=== PATIENT | female | born 1950 | race Hispanic/Latino ===

== ENCOUNTER 2017-12-07 18:10 | Emergency (ER) | payer OTHER ==
[2017-12-07] MEDS ORDERED: NA CHLORIDE 0.9% 1,000 ML ONE (19:41)
[2017-12-07 19:43] LABS: Absolute Lymphocytes (CBC) 1.6 K/uL (0.7-4.9); Absolute Monocytes 0.7 K/uL (0.1-1.3); Absolute Neutrophil 5.9 K/uL (1.8-8.0); Basophils % 0.6 % (0-1.3); Eosinophils % 2.3 % (0-4.4); Hematocrit 41.4 % (36.0-45.0); Lymphocytes % 19.4 % (15.3-44.8); MCH 28.9 pg (27.0-35.0); MCV 86.3 fL (80-100); MPV 7.6 fL (7.6-11.3); Monocytes % 7.9 % (3.3-12.3)
--- NOTE | 2017-12-07 19:49 | RAD REPORT ---
EXAM DESCRIPTION: VERONICAExtreelver Venous Uni Ltd12/07/2017 7:29 pm CLINICAL HISTORY: left leg pain and swelling. COMPARISON: None. FINDINGS: Left common femoral, superficial femoral, popliteal and posterior tibial veins are compre ssible and demonstrate augmentation. Doppler demonstrates good flow. A 4 x 1 x 2 centimeter Dyer's cyst is present IMPRESSION: No evidence of deep venous thrombosis involving the left lower extremity. 4 centimeter Dyer's cyst
--- NOTE | 2017-12-07 19:57 | RAD REPORT ---
EXAM DESCRIPTION: Luz Swanson (2 Views)12/07/2017 7:46 pm CLINICAL HISTORY: fever COMPARISON: May 2017 FINDINGS: The lungs appear clear of acute infiltrate. The heart is normal size IMPRESSION: No acute abnormalities displayed
[2017-12-07 20:12] LABS: Potassium 3.7 mmol/L (3.5-5.1)
[2017-12-07 20:29] LABS: Urine Blood 1+ (NEG); Urine Glucose NEGATIVE (NEG); Urine Protein NEGATIVE (NEG); Urine Specific Gravity 1.025 (1.005-1.030); Urine pH 6.5 (5.0-7.0)
--- NOTE | 2017-12-07 20:38 | ER ---
Nurse's Notes [facility] Name: uLz Maria Hgiuera Age: 66 yrs Sex: Female : 1950 Arrival Date: 12/07/2017 Time: 18:13 Bed 5 Private MD: Bismark Mo V Diagnosis: Synovial cyst of popliteal space [Dyer], left knee;Malaise and fatigue Presentation: 12/07 18:25 Presenting complaint: Child states: she feel like dizzy and shaky and could hardly hj stand up 2-3 days ago, went to PCP, gave her a pill on an upset stomach and stress; she still feel the same today, S/P L knee surgery a month ago; reports fever and chills; reports nausea and vomiting; reports abd pain;. Transition of care: patient was not received from another setting of care. 18:25 Method Of Arrival: Ambulatory 18:27 Onset of symptoms was December 04, 2017. Risk Assessment: Do you want to hurt yourself or hj someone else? Patient reports no desire to harm self or others. Initial Sepsis Screen: Does the patient meet any 2 criteria? No. Patient's initial sepsis screen is negative. Does the patient have a suspected source of infection? No. Patient's initial sepsis screen is negative. Care prior to arrival: None. 18:27 Acuity: TOYIN 3 hj Triage Assessment: 18:29 General: Appears in no apparent distress. uncomfortable, Behavior is calm, cooperative, hj appropriate for age. Pain: Complains of pain in abdomen. Historical: - Allergies: 18:29 No Known Drug Allergies; hj - Home Meds: 18:29 sumatriptan [Active]; omeprazole 40 mg Oral cpDR 1 cap once daily [Active]; duloxetine hj 30 mg oral cpDR 1 cap once daily [Active]; tramadol 50 mg Oral tab 1 tab every 6 hours [Active]; - PMHx: 18:29 Hypertension; hj - PSHx: 18:29 Knee surgery; hj - Immunization history:: Adult Immunizations up to date. - Social history:: Smoking status: Patient/guardian denies using tobacco, Patient/guardian denies using alcohol. - Ebola Screening: : Patient negative for fever greater than or equal to 101.5 degrees Fahrenheit, and additional compatible Ebola Virus Disease symptoms Patient denies exposure to infectious person Patient denies travel to an Ebola-affected area in the 21 days before illness onset. Screenin:30 Abuse screen: Denies threats or abuse. Denies injuries from another. Nutritional hj screening: No deficits noted. Tuberculosis screening: No symptoms or risk factors identified. Fall Risk None identified. Assessment: 18:45 General: Appears uncomfortable, Behavior is calm, cooperative, Reports chills for >3 aa5 days. Pain: Complains of pain in right pentecostal Pain does not radiate. Pain currently is 2 out of 10 on a pain scale. Quality of pain is described as aching, Pain began 1 week ago Is continuous. Neuro: Level of Consciousness is awake, alert, obeys commands, Oriented to person, place, time, situation, Personnel Manager are weak bilaterally Moves all extremities. Speech is normal, Facial symmetry appears normal, Pupils are PERRLA, Reports dizziness on and off x 1 week . Cardiovascular: Denies chest pain, shortness of breath, Heart tones S1 S2 present Edema is absent. Rhythm is regular. Respiratory: Airway is patent Respiratory effort is even, unlabored, Respiratory pattern is regular, symmetrical, Breath sounds are clear bilaterally. GI: Abdomen is round non-distended, Bowel sounds present X 4 quads. Abd is soft and non tender X 4 quads. Reports nausea, Patient currently denies abdominal pain, diarrhea, vomiting. : No signs and/or symptoms were reported regarding the genitourinary system. EENT: No signs and/or symptoms were reported regarding the EENT system. Derm: Skin is pink, warm \T\ dry. Musculoskeletal: Range of motion: intact in all extremities. 19:13 General: Appears in no apparent distress. comfortable, Behavior is calm, cooperative, ao Reports chills for >3 days. Pain: Complains of pain in abdomen Pain does not radiate. Pain currently is 3 out of 10 on a pain scale. Quality of pain is described as aching, Pain began Is. Neuro: Level of Consciousness is awake, alert, obeys commands, Oriented to person, place, time, situation, Personnel Manager are weak bilaterally Moves all extremities. Speech is normal, Facial symmetry appears normal, Pupils are PERRLA, Reports dizziness, since a week weakness. Cardiovascular: Denies chest pain, shortness of breath, Heart tones S1 S2 present Edema is absent. Respiratory: Airway is patent Respiratory effort is even, unlabored, Respiratory pattern is regular, symmetrical, Breath sounds are clear. GI: Abdomen is round non-distended, Bowel sounds present X 4 quads. Abd is soft and non tender X 4 quads. Reports nausea, Patient currently denies abdominal pain, diarrhea. : No signs and/or symptoms were reported regarding the genitourinary system. EENT: No signs and/or symptoms were reported regarding the EENT system. Derm: Skin is pink, warm \T\ dry. Musculoskeletal: Range of motion: intact in all extremities. 20:19 Reassessment: Patient appears in no apparent distress at this time. Patient and/or ao family updated on plan of care and expected duration. Pain level reassessed. Patient is alert, oriented x 3, equal unlabored respirations, skin warm/dry/pink. Labs reports. Vital Signs: 18:30 BP 154 / 98; Pulse 66; Resp 18; Temp 97.4(O); Pulse Ox 97% on R/A; Weight 81.65 kg; hj Height 5 ft. 0 in. (152.40 cm); Pain 2/10; 19:13 BP 159 / 61; Pulse 65; Resp 16; Pulse Ox 97% on R/A; Pain 3/10; ao 20:19 BP 168 / 82; Pulse 59; Resp 16; Pulse Ox 98% on R/A; Pain 0/10; ao 18:30 Body Mass Index 35.15 (81.65 kg, 152.40 cm) ED Course: 18:13 Patient arrived in ED. mr 18:14 Bismark Mo MD is Private Physician. mr 18:28 Triage completed. hj 18:30 Arm band placed on left wrist. hj 18:30 Patient has correct armband on for positive identification. Placed in gown. Bed in low hj position. Call light in reach. Side rails up X 1. 18:37 [facility] snw 18:37 Rios Kimball MD is Attending Physician. snw 18:58 Beti Carmona, MALVIN is Primary Nurse. aa5 19:03 Report given to Olvin Zayas RN. aa5 19:03 No provider procedures requiring assistance completed. aa5 19:18 Primary Nurse role handed off by Beti Carmona RN ao 19:18 Olvin Zayas, RN is Primary Nurse. ao 19:29 US Extremity Venous Unilateral Ltd In Process Unspecified. EDMS 19:42 Patient moved to radiology via wheelchair. kw 19:42 X-ray completed. Patient tolerated procedure well. kw 19:42 Patient moved back from radiology. kw 19:42 Inserted saline lock: 20 gauge in right antecubital area, using aseptic technique. tl2 Blood collected. 19:43 Chest Pa And Lat (2 Views) XRAY In Process Unspecified. EDMS 20:37 Bismark Mo MD is Referral Physician. snw 20:51 IV discontinued, intact, bleeding controlled, No redness/swelling at site. Pressure ao dressing applied. Administered Medications: 19:58 Drug: NS 0.9% 1000 ml Route: IV; Rate: 125 ml/hr; Site: left antecubital; ao Outcome: 20:38 Discharge ordered by MD. snw 20:50 Discharged to home via wheelchair. ao 20:50 Condition: stable 20:50 Discharge instructions given to patient, Instructed on discharge instructions, follow up and referral plans. Demonstrated understanding of instructions, follow-up care, medications. 20:54 Patient left the ED. ao Signatures: Dispatcher [employer] EDIL Bri Mann, NIRALIC BARREL RIB MATTING MACHINE OPERATOR-Marisela Navarrete Audri, MALVIN RN [id number] Deann Villanueva Henry, RN RN hj Ortiz, Alex, RN RN ao Knox, Taylor, RN RN tl2 Corrections: (The following items were deleted from the chart) 18:33 18:30 Pulse 66bpm; Resp 68bpm; Pulse Ox 97% RA; Temp 97.4F Oral; 81.65 kg; Height 5 ft. hj 0 in.; BMI: 35.1; Pain 2/10; hj 18:39 18:30 BP 154 / 98; Pulse 66bpm; Resp 68bpm; Pulse Ox 97% RA; Temp 97.4F Oral; 81.65 kg; hj Height 5 ft. 0 in.; BMI: 35.1; Pain 2/10; hj
--- NOTE | 2017-12-07 20:38 | EDPHYS ---
Physician Documentation [facility] Name: Luz Maria Higuera Age: 66 yrs Sex: Female : 1950 Arrival Date: 12/07/2017 Time: 18:13 Bed 5 Private MD: Bismark Mo V ED Physician Rios Kimball HPI: 12/07 21:47 This 66 yrs old Female presents to ER via Ambulatory with complaints of snw Weakness. 21:47 The patient presents to the emergency department with weakness of the entire body, snw generalized weakness, that is moderate. Onset: The symptoms/episode began/occurred gradually, 2 week(s) ago, and became persistent. Context: occurred at home. Associated signs and symptoms: The patient has no apparent associated signs or symptoms. Patient's baseline: Neuro: alert and fully oriented, Motor: no deficits, Ambulation: walks without assistance, pt with recent (1 mo ago) hx of left knee surgery. It is unknown whether or not the patient has had similar symptoms in the past. The patient has been recently seen by a physician: the patient's primary care provider, Dr. Mo with similar presenting complaints, given nexium. Historical: - Allergies: 18:29 No Known Drug Allergies; hj - Home Meds: 18:29 sumatriptan [Active]; omeprazole 40 mg Oral cpDR 1 cap once daily [Active]; duloxetine hj 30 mg oral cpDR 1 cap once daily [Active]; tramadol 50 mg Oral tab 1 tab every 6 hours [Active]; - PMHx: 18:29 Hypertension; hj - PSHx: 18:29 Knee surgery; hj - Immunization history:: Adult Immunizations up to date. - Social history:: Smoking status: Patient/guardian denies using tobacco, Patient/guardian denies using alcohol. - Ebola Screening: : Patient negative for fever greater than or equal to 101.5 degrees Fahrenheit, and additional compatible Ebola Virus Disease symptoms Patient denies exposure to infectious person Patient denies travel to an Ebola-affected area in the 21 days before illness onset. ROS: 21:45 Eyes: Negative for injury, pain, redness, and discharge, ENT: Negative for injury, snw pain, and discharge, Neck: Negative for injury, pain, and swelling, Cardiovascular: Negative for chest pain, palpitations, and edema, Respiratory: Negative for shortness of breath, cough, wheezing, and pleuritic chest pain, Abdomen/GI: Negative for abdominal pain, nausea, vomiting, diarrhea, and constipation, Back: Negative for injury and pain, : Negative for injury, bleeding, discharge, and swelling, MS/Extremity: Negative for injury and deformity, Skin: Negative for injury, rash, and discoloration. 21:45 Abdomen/GI: Negative for abdominal pain except some burning to epigastric area, no nausea, vomiting, diarrhea, or constipation. 21:45 Constitutional: Positive for malaise, weakness. 21:45 Neuro: Positive for weakness. Exam: 21:44 Constitutional: This is a well developed, well nourished patient who is awake, alert, snw and in no acute distress. Head/Face: Normocephalic, atraumatic. Eyes: Pupils equal round and reactive to light, extra-ocular motions intact. Lids and lashes normal. Conjunctiva and sclera are non-icteric and not injected. Cornea within normal limits. Periorbital areas with no swelling, redness, or edema. ENT: Nares patent. No nasal discharge, no septal abnormalities noted. Tympanic membranes are normal and external auditory canals are clear. Oropharynx with no redness, swelling, or masses, exudates, or evidence of obstruction, uvula midline. Mucous membranes moist. Neck: Trachea midline, no thyromegaly or masses palpated, and no cervical lymphadenopathy. Supple, full range of motion without nuchal rigidity, or vertebral point tenderness. No Meningismus. Chest/axilla: Normal chest wall appearance and motion. Nontender with no deformity. No lesions are appreciated. Cardiovascular: Regular rate and rhythm with a normal S1 and S2. No gallops, murmurs, or rubs. Normal PMI, no JVD. No pulse deficits. Respiratory: Lungs have equal breath sounds bilaterally, clear to auscultation and percussion. No rales, rhonchi or wheezes noted. No increased work of breathing, no retractions or nasal flaring. Back: No spinal tenderness. No costovertebral tenderness. Full range of motion. Skin: Warm, dry with normal turgor. Normal color with no rashes, no lesions, and no evidence of cellulitis. MS/ Extremity: Pulses equal, no cyanosis. Neurovascular intact. Full, normal range of motion. 21:44 Abdomen/GI: Inspection: abdomen appears normal, Bowel sounds: normal, Palpation: abdomen is soft and non-tender, in all quadrants. 21:44 Neuro: Orientation: is normal, Mentation: is normal, Memory: is normal, Motor: is normal, c/o generalized weakness/fatigue. Vital Signs: 18:30 BP 154 / 98; Pulse 66; Resp 18; Temp 97.4(O); Pulse Ox 97% on R/A; Weight 81.65 kg; hj Height 5 ft. 0 in. (152.40 cm); Pain 2/10; 19:13 BP 159 / 61; Pulse 65; Resp 16; Pulse Ox 97% on R/A; Pain 3/10; ao 20:19 BP 168 / 82; Pulse 59; Resp 16; Pulse Ox 98% on R/A; Pain 0/10; ao 18:30 Body Mass Index 35.15 (81.65 kg, 152.40 cm) hj MDM: 18:53 Patient medically screened. snw 21:46 Data reviewed: vital signs, nurses notes. Data interpreted: Pulse oximetry: on room air snw is 98 %. Interpretation: normal. Counseling: I had a detailed discussion with the patient and/or guardian regarding: the historical points, exam findings, and any diagnostic results supporting the discharge/admit diagnosis, the presence of at least one elevated blood pressure reading (>120/80) during this emergency department visit. Admission orders: after a detailed discussion of the patient's condition and case, the admit orders are written by me. Special discussion: I have referred the patient to see his PCP for further evaluation of high blood pressure. Based on the history and exam findings, there is no indication for further emergent testing or inpatient evaluation. I discussed with the patient/guardian the need to see the primary care provider for further evaluation of the symptoms. 12/07 18:58 Order name: Blood Culture Adult (2) [facility] 12/07 18:58 Order name: CBC with Diff; Complete Time: 19:45 snw 12/07 18:58 Order name: Chem 7; Complete Time: 20:14 snw 12/07 18:58 Order name: Lipase; Complete Time: 20:14 snw 12/07 19:53 Order name: Urine Culture [facility] 12/07 19:53 Order name: Urine Microscopic Only; Complete Time: 21:44 [facility] 12/07 18:58 Order name: Chest Pa And Lat (2 Views) XRAY; Complete Time: 20:09 [facility] 12/07 19:15 Order name: US Extremity Venous Unilateral Ltd; Complete Time: 19:53 w 12/07 19:53 Order name: Urine Dipstick-Ancillary (obtain specimen); Complete Time: 19:54 [facility] 12/07 20:14 Order name: Urine Dipstick--Ancillary (enter results); Complete Time: 20:32 ms Administered Medications: 19:58 Drug: NS 0.9% 1000 ml Route: IV; Rate: 125 ml/hr; Site: left antecubital; ao Disposition: 12/07/17 20:38 Discharged to Home. Impression: Synovial cyst of popliteal space [Dyer], left knee, Malaise and fatigue. - Condition is Stable. - Discharge Instructions: Dyer Cyst, Weakness, Fatigue. - Medication Reconciliation Form, Thank You Letter, Antibiotic Education, Prescription Opioid Use form. - Follow up: Bismark Mo MD; When: 2 - 3 days; Reason: Recheck today's complaints, Continuance of care, Re-evaluation by your physician. Follow up: Emergency Department; When: As needed; Reason: Worsening of condition. Addendum: 12/09/2017 20:52 Co-signature as Attending Physician, Rios Kimball MD. r n Signatures: Dispatcher [employer] EDMI Bri Mann, STUDY ABROAD COORDINATOR-C STUDY ABROAD COORDINATOR-Csnw Rios Kimball MD MD rn Joaquin, Henry, RN RN hj Ortiz, Alex, RN RN ao Corrections: (The following items were deleted from the chart) 12/07 19:30 18:59 Extremity Venous Uni Ltd+US.RAD.BRZ ordered. EDMI EDMI 20:54 20:38 12/07/2017 20:38 Discharged to Home. Impression: Synovial cyst of popliteal space ao [Dyer], left knee; Malaise and fatigue. Condition is Stable. Forms are Medication Reconciliation Form, Thank You Letter, Antibiotic Education, Prescription Opioid Use. Follow up: Bismark Mo; When: 2 - 3 days; Reason: Recheck today's complaints, Continuance of care, Re-evaluation by your physician. Follow up: Emergency Department; When: As needed; Reason: Worsening of condition. snw
[2017-12-07 20:58] VITALS: TEMP 97.4
[2017-12-07 21:00] VITALS: BP 168/82; O2SAT 98
[2017-12-07 21:37] LABS: Urine Bacteria <20 /HPF (<20); Urine Culture Reflex Order NOT NEEDED; Urine RBC <5 /HPF (NONE SEEN)
== END 2017-12-07 20:54 | disposition home or self-care (01) ==
LOC: ER 18:10
DX: M71.22 Synovial cyst of popliteal space [Baker], left knee (principal); R53.83 Other fatigue; I10 Essential (primary) hypertension
CPT/HCPCS: 36415; 71046; 80048; 83690; 85025; 87040 ×2; 87086; 87088; 93971; 99284; J7030; 81003; 81015

== ENCOUNTER 2017-12-10 04:34 | Emergency (ER) | payer OTHER ==
[2017-12-10] MEDS ORDERED: DEXAMETHASONE 10 MG/ML VIAL ONE (05:05)
[2017-12-10] MEDS ORDERED: METOCLOPRAMIDE 10 MG/2mL INJ ONE (05:05)
[2017-12-10] MEDS ORDERED: DIAZEPAM 2 MG TABLET ONE (05:06)
[2017-12-10] MEDS ORDERED: NA CHLORIDE 0.9% 500 ML ONE (05:06)
--- NOTE | 2017-12-10 06:16 | EDPHYS ---
Physician Documentation [facility] Name: Luz Maria Higuera Age: 66 yrs Sex: Female : 1950 Arrival Date: 12/10/2017 Time: 04:39 Bed 20 Private MD: ED Physician Rios Kimball HPI: 12/10 04:49 This 66 yrs old Female presents to ER via Unassigned with complaints of Back rn Pain. 04:49 This 66 yrs old Female presents to ER via Unassigned with complaints of rn headache. 04:49 The patient complains of pain to the back/base of head. The patient describes the rn headache as throbbing. Onset: The symptoms/episode began/occurred this morning. Associated signs and symptoms: Pertinent negatives: altered mental status, fever, neck stiffness, rash, vision loss, vomiting, weakness, vertigo. Severity of symptoms: At its worst the pain was moderate, in the emergency department the pain is unchanged. The patient has not experienced similar symptoms in the past. Reports pain to base of head, throbbing, began acutely while sleeping, worse when moves head, no fever/trauma/vomiting/chest pain/abd pain. . Historical: - Allergies: 04:56 No Known Allergies; jd3 - Home Meds: 04:56 omeprazole 40 mg Oral cpDR 1 cap once daily [Active]; SUMATRIPTAN [Active]; tramadol 50 jd3 mg Oral tab 1 tab every 6 hours [Active]; duloxetine 30 mg Oral cpDR 1 cap once daily [Active]; - PMHx: 04:56 Hypertension; jd3 - PSHx: 04:56 Knee surgery; jd3 - Immunization history:: Adult Immunizations up to date. - Family history:: not pertinent. - Social history:: Smoking status: Patient/guardian denies using tobacco. - Ebola Screening: : Patient negative for fever greater than or equal to 101.5 degrees Fahrenheit, and additional compatible Ebola Virus Disease symptoms. - Hospitalizations: : No recent hospitalization is reported. ROS: 04:49 Constitutional: Negative for fever, chills, and weight loss, Eyes: Negative for injury, rn pain, redness, and discharge, Neck: Negative for injury, and swelling, Cardiovascular: Negative for chest pain, palpitations, and edema, Respiratory: Negative for shortness of breath, cough, wheezing, and pleuritic chest pain, Abdomen/GI: Negative for abdominal pain, nausea, vomiting, diarrhea, and constipation, MS/Extremity: Negative for injury and deformity, Skin: Negative for injury, rash, and discoloration, Neuro: Negative for weakness, numbness, tingling, and seizure. Exam: 04:49 Constitutional: This is a well developed, well nourished patient who is awake, alert, rn intermittent painful episodes and holds back of head. Head/Face: Normocephalic, atraumatic. Eyes: Pupils equal round and reactive to light, extra-ocular motions intact. Lids and lashes normal. Conjunctiva and sclera are non-icteric and not injected. Cornea within normal limits. Periorbital areas with no swelling, redness, or edema. Neck: Trachea midline, no thyromegaly or masses palpated, and no cervical lymphadenopathy. Supple, full range of motion without nuchal rigidity, or vertebral point tenderness. No Meningismus. Back: No spinal tenderness. No costovertebral tenderness. Full range of motion. Skin: Warm, dry with normal turgor. Normal color with no rashes, no lesions, and no evidence of cellulitis. MS/ Extremity: Pulses equal, no cyanosis. Neurovascular intact. Full, normal range of motion. Equal circumference. Neuro: Awake and alert, GCS 15, oriented to person, place, time, and situation. Cranial nerves II-XII grossly intact. Motor strength 5/5 in all extremities. Sensory grossly intact. Cerebellar exam normal. Normal gait. Vital Signs: 04:52 BP 188 / 83; Pulse 65; Resp 20 S; Temp 98.7(O); Pulse Ox 98% on R/A; Weight 47.63 kg jd3 (R); Height 4 ft. 10 in. (147.32 cm) (R); Pain 10/10; 06:00 BP 163 / 77; Pulse 72; Resp 17 S; Pulse Ox 97% on R/A; Pain 3/10; jd3 04:52 Body Mass Index 21.94 (47.63 kg, 147.32 cm) jd3 Earlimart Coma Score: 06:15 Eye Response: spontaneous(4). Verbal Response: oriented(5). Motor Response: obeys rn commands(6). Total: 15. MDM: 04:42 Patient medically screened. rn 06:15 Differential diagnosis: migraine, tension headache, muscle spasm. Data reviewed: vital rn signs, nurses notes, radiologic studies, CT scan, and as a result, I will discharge patient. Counseling: I had a detailed discussion with the patient and/or guardian regarding: the historical points, exam findings, and any diagnostic results supporting the discharge/admit diagnosis, radiology results, the need for outpatient follow up, to return to the emergency department if symptoms worsen or persist or if there are any questions or concerns that arise at home. Response to treatment: the patient's symptoms have mildly improved after treatment, and as a result, I will discharge patient. Special discussion: I discussed with the patient/guardian in detail that at this point there is no indication for admission to the hospital. It is understood, however, that if the symptoms persist or worsen the patient needs to return immediately for re-evaluation. 12/10 04:48 Order name: CT Head Brain wo Cont rn 12/10 04:48 Order name: IV Start; Complete Time: 04:57 rn Administered Medications: 05:29 Drug: Valium 2 mg Route: PO; jd3 06:33 Follow up: Response: No adverse reaction jd3 05:29 Drug: NS 0.9% 500 ml Route: IV; Rate: bolus; Site: right antecubital; jd3 06:33 Follow up: IV Status: Completed infusion; IV Intake: 500ml jd3 05:30 Drug: Decadron - Dexamethasone 10 mg Route: IVP; Site: right antecubital; jd3 06:33 Follow up: Response: No adverse reaction jd3 05:30 Drug: Reglan 10 mg Route: IVP; Site: right antecubital; jd3 06:33 Follow up: Response: No adverse reaction jd3 Disposition: 12/10/17 06:16 Discharged to Home. Impression: Muscle spasm, Headache. - Condition is Stable. - Discharge Instructions: General Headache Without Cause, Muscle Cramps and Spasms. - Prescriptions for Medrol (Raúl) 4 mg Oral Tablets, Dose Pack - take 1 tablet by ORAL route as directed - follow package instructions; 1 packet. Cyclobenzaprine 5 mg Oral Tablet - take 1 tablet by ORAL route 3 times per day As needed; 15 tablet. - Medication Reconciliation Form, Thank You Letter, Antibiotic Education, Prescription Opioid Use form. - Follow up: Private Physician; When: As needed; Reason: Recheck today's complaints, Re-evaluation by your physician. - Problem is new. - Symptoms have improved. Signatures: Dispatcher [employer] Rios Vasquez MD MD rn Davies, Jonathon, RN RN jd3 Corrections: (The following items were deleted from the chart) 06:33 06:16 12/10/2017 06:16 Discharged to Home. Impression: Muscle spasm; Headache. jd3 Condition is Stable. Forms are Medication Reconciliation Form, Thank You Letter, Antibiotic Education, Prescription Opioid Use. Follow up: Private Physician; When: As needed; Reason: Recheck today's complaints, Re-evaluation by your physician. Problem is new. Symptoms have improved. rn
--- NOTE | 2017-12-10 06:16 | ER ---
Nurse's Notes [facility] Name: Luz Maria Higuera Age: 66 yrs Sex: Female : 1950 Arrival Date: 12/10/2017 Time: 04:39 Bed 20 Private MD: Diagnosis: Muscle spasm;Headache Presentation: 12/10 04:50 Presenting complaint: Child states: "she is having head, neck and back pain.". jd3 Transition of care: patient was not received from another setting of care. Onset of symptoms was December 10, 2017. Risk Assessment: Do you want to hurt yourself or someone else? Patient reports no desire to harm self or others. Initial Sepsis Screen: Does the patient meet any 2 criteria? No. Patient's initial sepsis screen is negative. Does the patient have a suspected source of infection? No. Patient's initial sepsis screen is negative. Care prior to arrival: None. 04:50 Method Of Arrival: Wheelchair jd3 04:50 Acuity: TOYIN 3 jd3 Historical: - Allergies: 04:56 No Known Allergies; jd3 - Home Meds: 04:56 omeprazole 40 mg Oral cpDR 1 cap once daily [Active]; SUMATRIPTAN [Active]; tramadol 50 jd3 mg Oral tab 1 tab every 6 hours [Active]; duloxetine 30 mg Oral cpDR 1 cap once daily [Active]; - PMHx: 04:56 Hypertension; jd3 - PSHx: 04:56 Knee surgery; jd3 - Immunization history:: Adult Immunizations up to date. - Family history:: not pertinent. - Social history:: Smoking status: Patient/guardian denies using tobacco. - Ebola Screening: : Patient negative for fever greater than or equal to 101.5 degrees Fahrenheit, and additional compatible Ebola Virus Disease symptoms. - Hospitalizations: : No recent hospitalization is reported. Screenin:56 Abuse screen: Denies threats or abuse. Nutritional screening: No deficits noted. jd3 Tuberculosis screening: No symptoms or risk factors identified. Fall Risk Ambulatory Aid- Crutches/Cane/Walker (15 pts). Gait- Weak (10 pts.). Mental Status- Oriented to own ability (0 pts). Total Goel Fall Scale indicates Low Risk Score (25-44 pts). Fall prevention measures have been instituted. Side Rails Up X 2 Placed close to Nursing Station Frequent Obs/Assesments occuring Family Present and informed to notify staff if they need to leave bedside. Assessment: 04:53 General: Appears uncomfortable, Behavior is cooperative, appropriate for age. Pain: jd3 Complains of pain in head, neck and back Pain currently is 10 out of 10 on a pain scale. Quality of pain is described as crampy, sharp. Neuro: Level of Consciousness is awake, alert, obeys commands, Oriented to person, place, time, situation. Cardiovascular: Capillary refill < 3 seconds Patient's skin is warm and dry. Respiratory: Airway is patent Respiratory effort is even, unlabored, Respiratory pattern is regular, symmetrical. GI: Abdomen is round Abd is soft and non tender X 4 quads. Patient currently denies nausea, vomiting. : No signs and/or symptoms were reported regarding the genitourinary system. EENT: No signs and/or symptoms were reported regarding the EENT system. Derm: Skin is intact, Skin is dry, Skin is normal, Skin temperature is warm. Musculoskeletal: Circulation, motion, and sensation intact. Range of motion: intact in all extremities. 06:02 Reassessment: Patient appears in no apparent distress at this time. Patient and/or jd3 family updated on plan of care and expected duration. Pain level reassessed. Patient is alert, oriented x 3, equal unlabored respirations, skin warm/dry/pink. 06:32 Reassessment: Patient appears in no apparent distress at this time. Patient and/or jd3 family updated on plan of care and expected duration. Pain level reassessed. Patient is alert, oriented x 3, equal unlabored respirations, skin warm/dry/pink. pt reported understanding of discharge instructions, pt assisted to front of ER in wheelchair. Patient states feeling better. Vital Signs: 04:52 BP 188 / 83; Pulse 65; Resp 20 S; Temp 98.7(O); Pulse Ox 98% on R/A; Weight 47.63 kg jd3 (R); Height 4 ft. 10 in. (147.32 cm) (R); Pain 10/10; 06:00 BP 163 / 77; Pulse 72; Resp 17 S; Pulse Ox 97% on R/A; Pain 3/10; jd3 04:52 Body Mass Index 21.94 (47.63 kg, 147.32 cm) jd3 [place] Coma Score: 06:15 Eye Response: spontaneous(4). Verbal Response: oriented(5). Motor Response: obeys rn commands(6). Total: 15. ED Course: 04:39 Patient arrived in ED. bb 04:42 Rios Kimball MD is Attending Physician. rn 04:50 Rojelio Wynne, MALVIN is Primary Nurse. jd3 04:52 Triage completed. jd3 04:53 Arm band placed on. jd3 04:57 Patient has correct armband on for positive identification. Bed in low position. Call jd3 light in reach. Side rails up X2. Adult w/ patient. 04:58 Inserted saline lock: 20 gauge in right antecubital area, using aseptic technique. ea Blood collected. 04:[address] via wheelchair. kw1 05:13 CT completed. Patient tolerated procedure well. Patient moved back from CT. kw1 05:16 CT Head Brain wo Cont In Process Unspecified. EDMS 06:31 No provider procedures requiring assistance completed. IV discontinued, intact, jd3 bleeding controlled, No redness/swelling at site. Pressure dressing applied. Administered Medications: 05:29 Drug: Valium 2 mg Route: PO; jd3 06:33 Follow up: Response: No adverse reaction jd3 05:29 Drug: NS 0.9% 500 ml Route: IV; Rate: bolus; Site: right antecubital; jd3 06:33 Follow up: IV Status: Completed infusion; IV Intake: 500ml jd3 05:30 Drug: Decadron - Dexamethasone 10 mg Route: IVP; Site: right antecubital; jd3 06:33 Follow up: Response: No adverse reaction jd3 05:30 Drug: Reglan 10 mg Route: IVP; Site: right antecubital; jd3 06:33 Follow up: Response: No adverse reaction jd3 Intake: 06:33 IV: 500ml; Total: 500ml. jd3 Outcome: 06:16 Discharge ordered by . rn 06:31 Discharged to home via wheelchair, with family. jd3 06:31 Condition: stable 06:31 Discharge instructions given to patient, family, Instructed on discharge instructions, follow up and referral plans. medication usage, Demonstrated understanding of instructions, follow-up care, medications, Prescriptions given X 2. 06:33 Patient left the ED. pod3 Signatures: Dispatcher [employer] Marlyn Solares RN RN bb Nieto, Roman, MD MD rn Antunez, Elena, RN RN ea Davies, Jonathon, RN RN jd3 Wilhelm, Kimberly [facility]
[2017-12-10 06:37] VITALS: TEMP 98.7
[2017-12-10 06:38] VITALS: BP 163/77; O2SAT 97
--- NOTE | 2017-12-10 08:44 | RAD REPORT ---
EXAM DESCRIPTION: CT - Head Brain Wo Cont - 12/10/2017 5:16 am CLINICAL HISTORY: Headache A preliminary written report was provided at the time of the study, and the report was reviewed prio r to final dictation. COMPARISON: None. TECHNIQUE: Axial 5 mm thick images of the head were obtained without IV contrast. All CT scans are performed using dose optimization technique as appropriate and may include automated exposure control or mA/KV adjustment according to patient size. FINDINGS: No intracranial hemorrhage, mass, edema or shift of mid-line structures. No acute infarcti on changes seen. No abnormal extra-axial fluid collections. Ventricles are normal. Arterial calcifica tions are present. No significant atrophy or chronic ischemic change. Brain parenchymal calcification s are present. These may well be from old infection. These are not regarded as significant. Mastoid air cells and visualized portions of the paranasal sinuses are clear. No acute bony findings. IMPRESSION: Negative non-contrast CT head examination for acute or significant finding.
== END 2017-12-10 06:33 | disposition home or self-care (01) ==
LOC: ER 04:34
DX: M62.830 Muscle spasm of back (principal); I10 Essential (primary) hypertension
CPT/HCPCS: 70450; 96361; 96374; 96375; 99284; J1100; J2765

== ENCOUNTER 2017-12-15 08:56 | Emergency (ER) | payer OTHER ==
[2017-12-15] MEDS ORDERED: DIAZEPAM 5 MG TABLET ONE (09:20)
[2017-12-15] MEDS ORDERED: METHYLPREDNISOLONE 125 MG INJ ONE (09:35)
--- NOTE | 2017-12-15 10:31 | ER ---
Nurse's Notes [facility] Name: Luz Maria Higuera Age: 66 yrs Sex: Female : 1950 Arrival Date: 12/15/2017 Time: 08:57 Bed 5 Private MD: Bismark Mo V Diagnosis: Muscle spasm Presentation: 12/15 09:06 Presenting complaint: Child states: She has been having bad neck pain, like a crick in ph her neck. She was here for the same thing about a week ago and they said for her to come back if it started hurting again." Pt c/o neck pain 03/08, denies headache, dizziness, fever, N/V. Transition of care: patient was not received from another setting of care. Acute neurological deficit: none identified. Onset of symptoms was December 15, 2017. Risk Assessment: Do you want to hurt yourself or someone else? Patient reports no desire to harm self or others. Initial Sepsis Screen: Does the patient meet any 2 criteria? No. Patient's initial sepsis screen is negative. Does the patient have a suspected source of infection? No. Patient's initial sepsis screen is negative. Care prior to arrival: None. 09:06 Method Of Arrival: Wheelchair ph 09:06 Acuity: TOYIN 4 ph Triage Assessment: 09:05 General: Appears uncomfortable, well developed, Behavior is anxious, fussy, restless. sv Pain: Complains of pain in back of neck Pain currently is 10 out of 10 on a pain scale. Is continuous, Noted to be moaning, restless. Neuro: Level of Consciousness is awake, alert, obeys commands, Oriented to person, place, time, situation, Moves all extremities. Full function Gait is steady, Speech is normal. Respiratory: Respiratory effort is even, unlabored, Respiratory pattern is regular, symmetrical. Derm: Skin is normal. Musculoskeletal: Range of motion: intact in all extremities. Historical: - Allergies: : No Known Drug Allergies; ph - Home Meds: : duloxetine 30 mg Oral cpDR 1 cap once daily [Active]; omeprazole 40 mg Oral cpDR 1 cap ph once daily [Active]; SUMATRIPTAN [Active]; tramadol 50 mg Oral tab 1 tab every 6 hours [Active]; - PMHx: 09:09 Hypertension; ph - PSHx: 09:09 Knee surgery; ph - Immunization history:: Adult Immunizations unknown. - Social history:: Smoking status: Patient/guardian denies using tobacco. - Ebola Screening: : No symptoms or risks identified at this time. Screenin:05 Abuse screen: Denies threats or abuse. Denies injuries from another. Nutritional sv screening: No deficits noted. Tuberculosis screening: No symptoms or risk factors identified. Fall Risk None identified. Vital Signs: 09:08 BP 106 / 75; Pulse 91; Resp 24; Temp 98.9; Pulse Ox 98% on R/A; Weight 58.97 kg; Height ph 4 ft. 11 in. (149.86 cm); Pain 10/10; 09:45 BP 141 / 70; Pulse 84; Resp 17 S; Pulse Ox 98% on R/A; Pain 6/10; sg 10:33 BP 123 / 73; Pulse 89; Resp 16; Temp 98.9; Pulse Ox 97% on R/A; Pain 4/10; sg 09:08 Body Mass Index 26.26 (58.97 kg, 149.86 cm) ph [place] Coma Score: 10:33 Eye Response: spontaneous(4). Verbal Response: oriented(5). Motor Response: obeys sg commands(6). Total: 15. ED Course: 08:57 Patient arrived in ED. sb2 08:58 Bismark Mo MD is Private Physician. sb2 09:00 Daniel York [facility]. pm1 09:00 Rios Kimball MD is Attending Physician. pm1 09:05 Patient has correct armband on for positive identification. Bed in low position. Call sv light in reach. Adult w/ patient. Pulse ox on. NIBP on. Door closed. Head of bed elevated. 09:08 Triage completed. ph 09:10 Arm band placed on. ph 09:21 Clary Mooney RN is Primary Nurse. sv 09:38 Primary Nurse role handed off by Clary Mooney RN sv 09:38 Edgar Andrea, MALVIN is Primary Nurse. sv 10:35 No provider procedures requiring assistance completed. Patient did not have IV access sg during this emergency room visit. Administered Medications: 09:22 Drug: Valium 5 mg Route: PO; sv 10:25 Follow up: Response: No adverse reaction; Pain is decreased sg 09:37 Drug: SOLU-Medrol 125 mg Route: IM; Site: right gluteus; sv 10:25 Follow up: Response: No adverse reaction sg Outcome: 10:30 Discharge ordered by . pm1 10:34 Discharged to home ambulatory, with family. sg 10:34 Condition: improved 10:34 Discharge instructions given to patient, family, Instructed on discharge instructions, follow up and referral plans. no drinking with medication, no driving heavy equipment, medication usage, safety practices, Demonstrated understanding of instructions, follow-up care, medications, Prescriptions given X 2. 10:35 Patient left the ED. sg Signatures: Clary Mooney RN RN sv Gay, Steven, RN RN sg Hall, Patricia, RN RN ph Marinas, Patrick, NP [employer] TABLE ASSEMBLER pm1 Evie Lozada2
--- NOTE | 2017-12-15 10:31 | EDPHYS ---
Physician Documentation [facility] Name: Luz Maria Higuera Age: 66 yrs Sex: Female : 1950 Arrival Date: 12/15/2017 Time: 08:57 Bed 5 Private MD: Bismark Mo V ED Physician Rios Kimball HPI: 12/15 09:50 This 66 yrs old Female presents to ER via Wheelchair with complaints of Neck pm1 Pain. 09:50 The patient or guardian complains of pain. The symptoms are located on the left pm1 trapezius and right trapezius. Onset: The symptoms/episode began/occurred 1 week(s) ago. Context: The problem was sustained at home, The neck injury/problem resulted from Possibly sleeping in bad position. Associated signs and symptoms: Pertinent negatives: fever, headache, bladder incontinence, bowel incontinence, nausea, numbness, tingling, vomiting, weakness. The pain does not radiate. Modifying factors: The symptoms are alleviated by nothing. the symptoms are aggravated by movement. Severity of symptoms: At their worst the symptoms were. The patient has been recently seen at the [facility] Emergency Department, last week, Same complaint. Patient reports prescription medications were not helping. Historical: - Allergies: 09:09 No Known Drug Allergies; ph - Home Meds: 09:09 duloxetine 30 mg Oral cpDR 1 cap once daily [Active]; omeprazole 40 mg Oral cpDR 1 cap ph once daily [Active]; SUMATRIPTAN [Active]; tramadol 50 mg Oral tab 1 tab every 6 hours [Active]; - PMHx: 09:09 Hypertension; ph - PSHx: 09:09 Knee surgery; ph - Immunization history:: Adult Immunizations unknown. - Social history:: Smoking status: Patient/guardian denies using tobacco. - Ebola Screening: : No symptoms or risks identified at this time. ROS: 09:53 Constitutional: Negative for fever, chills, and weight loss, Eyes: Negative for injury, pm1 pain, redness, and discharge, ENT: Negative for injury, pain, and discharge. 09:53 Neck: Positive for Pain and tenderness of trapezius muscles. Exam: 09:53 Constitutional: This is a well developed, well nourished patient who is awake, alert, pm1 and in no acute distress. Head/Face: Normocephalic, atraumatic. Eyes: Pupils equal round and reactive to light, extra-ocular motions intact. Lids and lashes normal. Conjunctiva and sclera are non-icteric and not injected. Cornea within normal limits. Periorbital areas with no swelling, redness, or edema. ENT: Nares patent. No nasal discharge, no septal abnormalities noted. Tympanic membranes are normal and external auditory canals are clear. Oropharynx with no redness, swelling, or masses, exudates, or evidence of obstruction, uvula midline. Mucous membranes moist. 09:53 Chest/axilla: Normal chest wall appearance and motion. Nontender with no deformity. No lesions are appreciated. Cardiovascular: Regular rate and rhythm with a normal S1 and S2. No gallops, murmurs, or rubs. Normal PMI, no JVD. No pulse deficits. Respiratory: Lungs have equal breath sounds bilaterally, clear to auscultation and percussion. No rales, rhonchi or wheezes noted. No increased work of breathing, no retractions or nasal flaring. Abdomen/GI: Soft, non-tender, with normal bowel sounds. No distension or tympany. No guarding or rebound. No evidence of tenderness throughout. Back: No spinal tenderness. No costovertebral tenderness. Full range of motion. Skin: Warm, dry with normal turgor. Normal color with no rashes, no lesions, and no evidence of cellulitis. MS/ Extremity: Pulses equal, no cyanosis. Neurovascular intact. Full, normal range of motion. 09:53 Neck: External neck: tenderness, of the left trapezius and right trapezius, Pain improved massaging bilateral trapezius, C-spine: vertebral tenderness, is not appreciated, ROM/movement: Meningeal signs: are not present, Kernig's sign is negative, Brudzinski's sign is negative, nuchal rigidity, is not appreciated. 09:53 Neuro: Orientation: is normal, Motor: is normal, moves all fours, Gait: is steady, at a normal pace, without difficulty. Vital Signs: 09:08 BP 106 / 75; Pulse 91; Resp 24; Temp 98.9; Pulse Ox 98% on R/A; Weight 58.97 kg; Height ph 4 ft. 11 in. (149.86 cm); Pain 10/10; 09:45 BP 141 / 70; Pulse 84; Resp 17 S; Pulse Ox 98% on R/A; Pain 6/10; sg 10:33 BP 123 / 73; Pulse 89; Resp 16; Temp 98.9; Pulse Ox 97% on R/A; Pain 4/10; sg 09:08 Body Mass Index 26.26 (58.97 kg, 149.86 cm) ph [place] Coma Score: 10:33 Eye Response: spontaneous(4). Verbal Response: oriented(5). Motor Response: obeys sg commands(6). Total: 15. MDM: 09:00 Patient medically screened. pm1 10:28 Data reviewed: vital signs. Data interpreted: Pulse oximetry: on room air is 98 %. pm1 Interpretation: normal. Counseling: I had a detailed discussion with the patient and/or guardian regarding: the historical points, exam findings, and any diagnostic results supporting the discharge/admit diagnosis, the need for outpatient follow up, to return to the emergency department if symptoms worsen or persist or if there are any questions or concerns that arise at home. Administered Medications: 09:22 Drug: Valium 5 mg Route: PO; sv 10:25 Follow up: Response: No adverse reaction; Pain is decreased sg 09:37 Drug: SOLU-Medrol 125 mg Route: IM; Site: right gluteus; sv 10:25 Follow up: Response: No adverse reaction sg Disposition: 10:44 Co-signature as Attending Physician, Rios Kimball MD. rn Disposition: 12/15/17 10:30 Discharged to Home. Impression: Muscle spasm. - Condition is Stable. - Discharge Instructions: Muscle Cramps and Spasms. - Prescriptions for Valium 2 mg Oral Tablet - take 1 tablet by ORAL route every 8 hours As needed; 10 tablet. Medrol (Raúl) 4 mg Oral Tablets, Dose Pack - take 1 tablet by ORAL route as directed - follow package instructions; 1 packet. - Medication Reconciliation Form, Thank You Letter form. - Follow up: Emergency Department; When: As needed; Reason: Worsening of condition. Follow up: Private Physician; When: 2 - 3 days; Reason: Recheck today's complaints, Continuance of care, Re-evaluation by your physician. - Problem is new. - Symptoms have improved. Signatures: Clary Mooney RN RN sv Edgar Andrea RN RN sg Rios Kimball MD MD rn Hall, Patricia, RN RN Daniel York, ZAHIRA MATHEMATICAL PHYSICIST pm1 Corrections: (The following items were deleted from the chart) 10:32 10:30 12/15/2017 10:30 Discharged to Home. Impression: Strain of muscle, fascia and pm1 tendon at neck level. Condition is Stable. Forms are Medication Reconciliation Form, Thank You Letter, Antibiotic Education, Prescription Opioid Use. Follow up: Emergency Department; When: As needed; Reason: Worsening of condition. Follow up: Private Physician; When: 2 - 3 days; Reason: Recheck today's complaints, Continuance of care, Re-evaluation by your physician. Problem is new. Symptoms have improved. pm1 10:35 10:32 12/15/2017 10:30 Discharged to Home. Impression: Muscle spasm. Condition is sg Stable. Forms are Medication Reconciliation Form, Thank You Letter, Antibiotic Education, Prescription Opioid Use. Follow up: Emergency Department; When: As needed; Reason: Worsening of condition. Follow up: Private Physician; When: 2 - 3 days; Reason: Recheck today's complaints, Continuance of care, Re-evaluation by your physician. Problem is new. Symptoms have improved. pm1
[2017-12-15 10:39] VITALS: TEMP 98.9
[2017-12-15 10:41] VITALS: BP 123/73; O2SAT 97
== END 2017-12-15 10:35 | disposition home or self-care (01) ==
LOC: ER 08:56
DX: M62.838 Other muscle spasm (principal); I10 Essential (primary) hypertension
CPT/HCPCS: 96372; 99283; J2930

== ENCOUNTER 2018-11-20 16:14 | Emergency (ER) | payer OTHER ==
[2018-11-20 16:54] LABS: Absolute Lymphocytes (CBC) 1.7 K/uL (0.7-4.9); Basophils % 0.6 % (0-1.3); Hematocrit 44.2 % (36.0-45.0); Lymphocytes % 23.9 % (15.3-44.8); MPV 8.4 fL (7.6-11.3); RBC Red Blood Cell Count 5.01 M/uL (3.86-4.86)
[2018-11-20 17:06] LABS: Potassium 3.7 mmol/L (3.5-5.1)
--- NOTE | 2018-11-20 17:30 | RAD REPORT ---
EXAM DESCRIPTION: CT - Head Brain Wo Cont - 11/20/2018 5:12 pm CLINICAL HISTORY: Headache, hypertension COMPARISON: November 2017 TECHNIQUE: Axial 5 mm thick images of the head were obtained without IV contrast. All CT scans are performed using dose optimization technique as appropriate and may include automated exposure control or mA/KV adjustment according to patient size. FINDINGS: No intracranial hemorrhage, mass, edema or shift of mid-line structures. No acute infarcti on changes seen. No significant atrophy or chronic ischemic change. Ventricles are normal. Mastoid air cells and visualized portions of the paranasal sinuses are clear. No acute bony findings. IMPRESSION: Negative non-contrast CT head examination.
[2018-11-20] MEDS ORDERED: LISINOPRIL 20 MG TAB ONE (17:44)
--- NOTE | 2018-11-20 18:40 | ER ---
Nurse's Notes [facility] Name: Luz Maria Higuera Age: 67 yrs Sex: Female : 1950 Arrival Date: 11/20/2018 Time: 16:19 Bed 19 Private MD: Diagnosis: Hypertensive heart disease Presentation: 11/20 16:19 Presenting complaint: Patient states: from Dr. Estrella clinic, SBP showed 194; she was hj sent here for eval; reports headache and dizziness;. Transition of care: patient was not received from another setting of care. Onset of symptoms was November 20, 2018. Risk Assessment: Do you want to hurt yourself or someone else? Patient reports no desire to harm self or others. Initial Sepsis Screen: Does the patient meet any 2 criteria? No. Patient's initial sepsis screen is negative. Does the patient have a suspected source of infection? No. Patient's initial sepsis screen is negative. Care prior to arrival: None. 16:19 Method Of Arrival: Ambulatory 16:19 Acuity: TOYIN 3 hj Historical: - Allergies: 16:21 No Known Allergies; hj - PMHx: 16:21 Hypertension; hj - PSHx: 16:21 Knee surgery; hj - Immunization history:: Adult Immunizations up to date. - Social history:: Smoking status: Patient/guardian denies using tobacco. - Ebola Screening: : Patient negative for fever greater than or equal to 101.5 degrees Fahrenheit, and additional compatible Ebola Virus Disease symptoms Patient denies exposure to infectious person Patient denies travel to an Ebola-affected area in the 21 days before illness onset No symptoms or risks identified at this time. Screenin:00 Abuse screen: Denies threats or abuse. Denies injuries from another. Nutritional ca1 screening: No deficits noted. Tuberculosis screening: No symptoms or risk factors identified. Fall Risk IV access (20 points). Assessment: 17:00 General: Appears in no apparent distress. comfortable, Behavior is calm, cooperative, ca1 appropriate for age. Pain: Denies pain. Neuro: Level of Consciousness is awake, alert, obeys commands, Oriented to person, place, time, situation, Reports dizziness. Cardiovascular: Reports lightheadedness, Heart tones S1 S2 present Capillary refill < 3 seconds Patient's skin is warm and dry. Pulses are all present. Rhythm is sinus bradycardia. Respiratory: GI: Abdomen is flat, non-distended, Bowel sounds present X 4 quads. Abd is soft and non tender X 4 quads. : No deficits noted. No signs and/or symptoms were reported regarding the genitourinary system. EENT: No deficits noted. No signs and/or symptoms were reported regarding the EENT system. Derm: Skin is intact, is healthy with good turgor, Skin is pink, warm \T\ dry. Musculoskeletal: Circulation, motion, and sensation intact. Capillary refill < 3 seconds, Range of motion: intact in all extremities. 18:00 Reassessment: Patient appears in no apparent distress at this time. Patient and/or ca1 family updated on plan of care and expected duration. Pain level reassessed. Patient is alert, oriented x 3, equal unlabored respirations, skin warm/dry/pink. 19:00 Reassessment: Patient appears in no apparent distress at this time. Patient is alert, ca1 oriented x 3, equal unlabored respirations, skin warm/dry/pink. Vital Signs: 16:21 BP 212 / 84; Pulse 55; Resp 18; Temp 98.1(O); Pulse Ox 99% on R/A; Weight 85.73 kg; Height 5 ft. 2 in. (157.48 cm); Pain 7/10; 16:54 BP 165 / 84; Pulse 60; Resp 17; Temp 97.9(O); Pulse Ox 99% on R/A; mh5 17:36 BP 114 / 95; Pulse 55; Resp 17; Temp 98.0(TE); Pulse Ox 100% ; mh5 18:32 BP 153 / 85; Pulse 71; Resp 16; Temp 98.3(O); Pulse Ox 99% ; mh5 16:21 Body Mass Index 34.57 (85.73 kg, 157.48 cm) ED Course: 16:19 Patient arrived in ED. mr 16:20 Triage completed. hj 16:21 Arm band placed on right wrist. hj 16:22 Shawn Davis MD is Attending Physician. kdr 16:43 EKG done, by rfid technician. reviewed by Shawn Davis MD. sm3 16:51 Chem 7 Sent. mh5 16:51 CBC with Diff Sent. mh5 16:53 Patient has correct armband on for positive identification. Placed in gown. Bed in low mh5 position. Call light in reach. Side rails up X2. Adult w/ patient. Warm blanket given. workers' compensation mediator on. Pulse ox on. NIBP on. 16:53 Ptt, Activated Sent. mh5 16:53 Initial lab(s) drawn, by me, sent to lab. Inserted saline lock: 20 gauge antecubital 5 area, using aseptic technique. Blood collected. 17:[address] via wheelchair. nirmala 17:12 CT Head Brain wo Cont In Process Unspecified. EDMS 17:25 Valeria Oliveira, MALVIN is Primary Nurse. ca1 18:38 Bismark Mo MD is Referral Physician. kdr 18:57 Primary Nurse role handed off by Valeria Oliveira RN ca1 19:00 No provider procedures requiring assistance completed. IV discontinued, intact, ca1 bleeding controlled, No redness/swelling at site. Pressure dressing applied. 19:06 Valeria Oliveira RN is Primary Nurse. ca1 Administered Medications: 17:31 Drug: Lisinopril 20 mg Route: PO; ca1 18:51 Follow up: Response: No adverse reaction; Blood pressure is lowered ca1 Outcome: 18:39 Discharge ordered by . kdr 19:00 Discharged to home ambulatory, with family. ca1 19:00 Condition: stable 19:00 Discharge instructions given to patient, Instructed on discharge instructions, follow up and referral plans. Demonstrated understanding of instructions, follow-up care. 19:08 Patient left the ED. ca1 Signatures: Dispatcher [employer] EDVT Shawn Davis MD MD kdr Rivera, Mary mr Joaquin, Henry, RN RN hj Jordan, Nathan nj Martinez, Maria [facility]ie [facility] Valeria Oliveira RN RN ca1 Corrections: (The following items were deleted from the chart) 19:08 19:06 Reassessment: Patient appears in no apparent distress at this time. Patient is ca1 alert, oriented x 3, equal unlabored respirations, skin warm/dry/pink. ca1
--- NOTE | 2018-11-20 18:40 | EDPHYS ---
Physician Documentation [facility] Name: Luz Maria Higuera Age: 67 yrs Sex: Female : 1950 Arrival Date: 11/20/2018 Time: 16:19 Bed 19 Private MD: ED Physician Shawn Davis HPI: 11/20 21:57 This 67 yrs old Female presents to ER via Ambulatory with complaints of High kdr Blood Pressure. 21:57 The patient has elevated blood pressure and discovered this at a physician's office, [facility] and sent to the emergency department for evaluation. Onset: The symptoms/episode began/occurred at an unknown time. Modifying factors: The symptoms are aggravated by The symptoms are alleviated by. Associated signs and symptoms: Pertinent positives: headache, very slight. Severity of symptoms: At its worst the blood pressure was severe, in the emergency department the blood pressure is improved, mildly. The patient has not experienced similar symptoms in the past. The patient has not recently seen a physician. Historical: - Allergies: 16:21 No Known Allergies; hj - PMHx: 16:21 Hypertension; hj - PSHx: 16:21 Knee surgery; hj - Immunization history:: Adult Immunizations up to date. - Social history:: Smoking status: Patient/guardian denies using tobacco. - Ebola Screening: : Patient negative for fever greater than or equal to 101.5 degrees Fahrenheit, and additional compatible Ebola Virus Disease symptoms Patient denies exposure to infectious person Patient denies travel to an Ebola-affected area in the 21 days before illness onset No symptoms or risks identified at this time. ROS: 21:57 Constitutional: Negative for fever, chills, and weight loss, Eyes: Negative for injury, kdr pain, redness, and discharge, Neck: Negative for injury, pain, and swelling, Cardiovascular: Negative for chest pain, palpitations, and edema, Respiratory: Negative for shortness of breath, cough, wheezing, and pleuritic chest pain, Abdomen/GI: Negative for abdominal pain, nausea, vomiting, diarrhea, and constipation, Back: Negative for injury and pain, : Negative for injury, bleeding, discharge, and swelling, MS/Extremity: Negative for injury and deformity, Skin: Negative for injury, rash, and discoloration, Psych: Negative for depression, anxiety, suicide ideation, homicidal ideation, and hallucinations, Allergy/Immunology: Negative for hives, rash, and allergies, Endocrine: Negative for neck swelling, polydipsia, polyuria, polyphagia, and marked weight changes, Hematologic/Lymphatic: Negative for swollen nodes, abnormal bleeding, and unusual bruising. 21:57 Neuro: Positive for headache, very slight. Exam: 21:07 ECG was reviewed by the Attending Physician. kdr 21:57 Constitutional: This is a well developed, well nourished patient who is awake, alert, kdr and in no acute distress. Head/Face: Normocephalic, atraumatic. Eyes: Pupils equal round and reactive to light, extra-ocular motions intact. Lids and lashes normal. Conjunctiva and sclera are non-icteric and not injected. Cornea within normal limits. Periorbital areas with no swelling, redness, or edema. Neck: Trachea midline, no thyromegaly or masses palpated, and no cervical lymphadenopathy. Supple, full range of motion without nuchal rigidity, or vertebral point tenderness. No Meningismus. Chest/axilla: Normal chest wall appearance and motion. Nontender with no deformity. No lesions are appreciated. Cardiovascular: Regular rate and rhythm with a normal S1 and S2. No gallops, murmurs, or rubs. Normal PMI, no JVD. No pulse deficits. Respiratory: Lungs have equal breath sounds bilaterally, clear to auscultation and percussion. No rales, rhonchi or wheezes noted. No increased work of breathing, no retractions or nasal flaring. Abdomen/GI: Soft, non-tender, with normal bowel sounds. No distension or tympany. No guarding or rebound. No evidence of tenderness throughout. Back: No spinal tenderness. No costovertebral tenderness. Full range of motion. Skin: Warm, dry with normal turgor. Normal color with no rashes, no lesions, and no evidence of cellulitis. MS/ Extremity: Pulses equal, no cyanosis. Neurovascular intact. Full, normal range of motion. Neuro: Awake and alert, GCS 15, oriented to person, place, time, and situation. Cranial nerves II-XII grossly intact. Motor strength 5/5 in all extremities. Sensory grossly intact. Cerebellar exam normal. Normal gait. Psych: Awake, alert, with orientation to person, place and time. Behavior, mood, and affect are within normal limits. Vital Signs: 16:21 BP 212 / 84; Pulse 55; Resp 18; Temp 98.1(O); Pulse Ox 99% on R/A; Weight 85.73 kg; hj Height 5 ft. 2 in. (157.48 cm); Pain 7/10; 16:54 BP 165 / 84; Pulse 60; Resp 17; Temp 97.9(O); Pulse Ox 99% on R/A; mh5 17:36 BP 114 / 95; Pulse 55; Resp 17; Temp 98.0(TE); Pulse Ox 100% ; mh5 18:32 BP 153 / 85; Pulse 71; Resp 16; Temp 98.3(O); Pulse Ox 99% ; mh5 16:21 Body Mass Index 34.57 (85.73 kg, 157.48 cm) hj MDM: 18:39 Patient medically screened. kdr 21:57 Data reviewed: vital signs, nurses notes, lab test result(s), radiologic studies. kdr Counseling: I had a detailed discussion with the patient and/or guardian regarding: the historical points, exam findings, and any diagnostic results supporting the discharge/admit diagnosis, lab results, radiology results, the need for outpatient follow up. Physician consultation: Bismark Mo MD regarding patient's condition, outpatient follow-up, in 2-3 days, and will see patient in office. 11/20 16:23 Order name: CBC with Diff; Complete Time: 18:34 kdr 11/20 16:23 Order name: Chem 7; Complete Time: 18:34 kdr 11/20 16:46 Order name: CT Head Brain wo Cont; Complete Time: 18:34 kdr 11/20 16:50 Order name: Ptt, Activated; Complete Time: 18:34 mh5 11/20 17:57 Order name: EKG Electrocardiogram EDMS EC:07 Rate is 55 beats/min. Rhythm is regular, Sinus bradycardia with No ectopy. QRS [place] is kdr Normal. SD interval is normal. QRS interval is normal. QT interval is normal. No Q waves. T waves are Normal. Clinical impression: Sinus bradycardia. Administered Medications: 17:31 Drug: Lisinopril 20 mg Route: PO; ca1 18:51 Follow up: Response: No adverse reaction; Blood pressure is lowered ca1 Disposition: 06/24/19 18:39 Discharged to Home. Impression: Hypertensive heart disease. - Condition is Stable. - Discharge Instructions: Hypertension, [id number]. - Medication Reconciliation Form, Thank You Letter form. - Follow up: Bismark Mo MD; When: Tomorrow; Reason: If symptoms return, Further diagnostic work-up, Recheck today's complaints, Continuance of care, Re-evaluation by your physician. - Problem is new. - Symptoms have improved. - Notes: Call Dr. Mo's office tomorrow for an appointment. Signatures: Dispatcher [employer] EDFL Shawn Davis MD MD kdr Cesario Nicolas RN RN hj Valeria Oliveira RN RN ca1 Corrections: (The following items were deleted from the chart) 19:08 18:39 11/20/2018 18:39 Discharged to Home. Impression: Hypertensive heart disease. ca1 Condition is Stable. Forms are Medication Reconciliation Form, Thank You Letter, Antibiotic Education, Prescription Opioid Use. Follow up: Bismark Mo; When: Tomorrow; Reason: If symptoms return, Further diagnostic work-up, Recheck today's complaints, Continuance of care, Re-evaluation by your physician. Problem is new. Symptoms have improved. kdr
[2018-11-20 19:38] VITALS: BP 153/85; TEMP 98.3; O2SAT 99
--- NOTE | 2018-11-21 14:51 | EKG ---
Test Date: 2018-11-20 Test Time: 16:36:11 Mutton Puncher: AKSHAT MEASUREMENT RESULTS: Intervals: Rate: 55 VA: 198 QRSD: 80 QT: 436 QTc: 417 [place]: P: 39 VA: 198 QRS: 47 T: 41 INTERPRETIVE STATEMENTS: Sinus bradycardia Low voltage QRS Borderline ECG Compared to ECG 06/27/2017 08:51:54 No significant changes Electronically Signed On 11-21-18 14:47:32 CDT by Kevin Saini
== END 2018-11-20 19:08 | disposition home or self-care (01) ==
LOC: ER 16:14
DX: I11.9 Hypertensive heart disease without heart failure (principal); I10 Essential (primary) hypertension
CPT/HCPCS: 36415; 70450; 80048; 85025; 85730; 93005; 99285

== ENCOUNTER 2019-03-17 10:26 | Emergency (ER) | payer OTHER ==
[2019-03-17] MEDS ORDERED: NA CHLORIDE 0.9% 500 ML ONE (11:02)
[2019-03-17 11:25] LABS: Absolute Lymphocytes (CBC) 0.6 K/uL (0.7-4.9); Basophils % 0.9 % (0-1.3); Hematocrit 43.3 % (36.0-45.0); Lymphocytes % 23.6 % (15.3-44.8); MPV 8.5 fL (7.6-11.3); Protime INR 1.02; RBC Red Blood Cell Count 5.02 M/uL (3.86-4.86)
--- NOTE | 2019-03-17 11:43 | RAD REPORT ---
EXAM DESCRIPTION: RAD - Chest Single View - 03/17/2019 11:22 am CLINICAL HISTORY: Cough, shortness of breath COMPARISON: November 2017 TECHNIQUE: AP portable chest image was obtained 1118 hours . FINDINGS: Lung volumes are low. No peripheral mass or consolidation. Lung markings are not clearly d ifferent from comparison when adjusting for the more shallow inspiratory effort. Failure and volume o verload are not suspected. Heart and vasculature are normal. No measurable pleural effusion and no pn eumothorax. No acute bony abnormality seen. No acute aortic findings suspected. IMPRESSION: No acute cardiopulmonary process. No suspicious change from comparison.
[2019-03-17 11:45] LABS: ALT/SGPT 32 U/L (12-78); AST/SGOT 30 U/L (15-37); Alkaline Phosphatase 104 U/L (45-117); BUN Blood Urea Nitrogen 12 mg/dL (7-18); Bicarbonate 26 mmol/L (21-32); Bilirubin Direct 0.1 mg/dL (0-0.2); Bilirubin Total 0.4 mg/dL (0.2-1.0); Glucose Level 135 mg/dL (74-106); Lipase 96 U/L (73-393); Magnesium 2.2 mg/dL (1.8-2.4); NT PRO-BNP 75 pg/mL (<125); Potassium 3.4 mmol/L (3.5-5.1); Sodium Level 139 mmol/L (136-145); Troponin (Emerg Dept Use Only) < 0.02 ng/mL (0.0-0.045)
[2019-03-17 11:49] LABS: Urine Blood TRACE (NEG); Urine Glucose NEGATIVE (NEG); Urine Protein NEGATIVE (NEG); Urine Specific Gravity 1.015 (1.005-1.030)
[2019-03-17 12:01] LABS: Urine Bacteria 20-50 /HPF (<20); Urine Culture Reflex Order NOT NEEDED
[2019-03-17 13:30] LABS: Blood Morphology Comment NOT SEEN (NOT SEEN); Platelet Estimate ADEQ
[2019-03-17 14:13] LABS: Urine Blood 2+ (NEG); Urine Glucose NEGATIVE (NEG); Urine Protein NEGATIVE (NEG); Urine Specific Gravity 1.015 (1.005-1.030); Urine pH 5.5 (5.0-7.0)
--- NOTE | 2019-03-17 14:22 | EDPHYS ---
Physician Documentation [facility] Name: Luz Maria Higuera Age: 68 yrs Sex: Female : 1950 Arrival Date: 03/17/2019 Time: 10:28 Bed 5 Private MD: Bismark Mo V ED Physician Allan Jarvis HPI: 03/17 16:40 This 68 yrs old Female presents to ER via Wheelchair with complaints of gs Fatigue, Dehydration, Decreased Appetite. 16:40 flu like symptoms malaise chills decreased appetite. Onset: The symptoms/episode gs began/occurred 5 day(s) ago. Severity of symptoms: At their worst the symptoms were moderate in the emergency department the symptoms are unchanged. The patient has experienced similar episodes in the past, a few times. Historical: - Allergies: 10:44 "unknown blood pressure medication."; ss - PMHx: 10:44 Hypertension; ss - PSHx: 10:44 Knee surgery; ss - Immunization history:: Adult Immunizations up to date. - Social history:: Smoking status: Patient/guardian denies using tobacco. - Ebola Screening: : Patient denies exposure to infectious person Patient denies travel to an Ebola-affected area in the 21 days before illness onset. ROS: 16:40 All other systems are negative. gs Exam: 16:40 Head/Face: Normocephalic, atraumatic. Eyes: Pupils equal round and reactive to light, gs extra-ocular motions intact. Lids and lashes normal. Conjunctiva and sclera are non-icteric and not injected. Cornea within normal limits. Periorbital areas with no swelling, redness, or edema. ENT: Nares patent. No nasal discharge, no septal abnormalities noted. Tympanic membranes are normal and external auditory canals are clear. Oropharynx with no redness, swelling, or masses, exudates, or evidence of obstruction, uvula midline. Mucous membranes moist. Neck: Trachea midline, no thyromegaly or masses palpated, and no cervical lymphadenopathy. Supple, full range of motion without nuchal rigidity, or vertebral point tenderness. No Meningismus. Chest/axilla: Normal chest wall appearance and motion. Nontender with no deformity. No lesions are appreciated. Cardiovascular: Regular rate and rhythm with a normal S1 and S2. No gallops, murmurs, or rubs. Normal PMI, no JVD. No pulse deficits. Respiratory: Lungs have equal breath sounds bilaterally, clear to auscultation and percussion. No rales, rhonchi or wheezes noted. No increased work of breathing, no retractions or nasal flaring. Abdomen/GI: Soft, non-tender, with normal bowel sounds. No distension or tympany. No guarding or rebound. No evidence of tenderness throughout. Back: No spinal tenderness. No costovertebral tenderness. Full range of motion. Skin: Warm, dry with normal turgor. Normal color with no rashes, no lesions, and no evidence of cellulitis. MS/ Extremity: Pulses equal, no cyanosis. Neurovascular intact. Full, normal range of motion. Neuro: Awake and alert, GCS 15, oriented to person, place, time, and situation. Cranial nerves II-XII grossly intact. Motor strength 5/5 in all extremities. Sensory grossly intact. Cerebellar exam normal. Normal gait. 16:40 Constitutional: The patient appears alert, awake. 16:40 ECG was reviewed by the Attending Physician. Vital Signs: 10:44 BP 122 / 79; Pulse 84; Resp 16; Temp 98.1(TE); Pulse Ox 98% on R/A; Weight 81.65 kg; ss Pain 0/10; 12:15 BP 122 / 79; Pulse 61; Resp 18; Pulse Ox 100% on R/A; hb 13:30 BP 130 / 85; Pulse 62; Resp 18 S; Pulse Ox 99% on R/A; Pain 0/10; aa5 14:30 BP 134 / 88; Pulse 64; Resp 16 S; Temp 98.3(TE); Pulse Ox 99% on R/A; Pain 0/10; aa5 MDM: 10:59 Patient medically screened. gs 16:40 Differential Diagnosis sepsis, flu, cad. Data reviewed: vital signs, nurses notes. gs Counseling: I had a detailed discussion with the patient and/or guardian regarding: the historical points, exam findings, and any diagnostic results supporting the discharge/admit diagnosis, lab results, the need for outpatient follow up. Response to treatment: the patient's symptoms have markedly improved after treatment, the patient's condition has returned to base line, and as a result, I will discharge patient. 03/17 11:00 Order name: Urine Microscopic Only; Complete Time: 12:25 03/17 11:00 Order name: Basic Metabolic Panel; Complete Time: 11:53 03/17 11:00 Order name: CBC with Diff; Complete Time: 13:32 03/17 11:00 Order name: LFT's; Complete Time: 11:53 03/17 11:00 Order name: Magnesium; Complete Time: 11:53 03/17 11:00 Order name: NT PRO-BNP; Complete Time: 11:53 03/17 11:00 Order name: PT-INR; Complete Time: 11:53 03/17 11:00 Order name: Troponin (emerg Dept Use Only); Complete Time: 11:53 03/17 11:00 Order name: Lipase; Complete Time: 11:53 03/17 11:45 Order name: Urine Dipstick--Ancillary (enter results); Complete Time: 11:53 03/17 11:53 Order name: Flu; Complete Time: 13:15 03/17 11:53 Order name: [place] Screen Profile; Complete Time: 13:15 03/17 13:30 Order name: Manual Differential; Complete Time: 13:32 EDMS 03/17 14:03 Order name: Urine Dipstick--Ancillary (enter results): Straight Cath Specimen; Complete eb Time: 14:16 03/17 11:00 Order name: Urine Dipstick-Ancillary (obtain specimen); Complete Time: 11:46 03/17 11:00 Order name: XRAY Chest (1 view); Complete Time: 11:53 03/17 11:00 Order name: EKG; Complete Time: 11:02 03/17 11:00 Order name: Cardiac monitoring; Complete Time: 11:14 03/17 11:00 Order name: EKG - Nurse/Tech; Complete Time: 11:14 03/17 11:00 Order name: IV Saline Lock; Complete Time: 11:14 03/17 11:00 Order name: Labs collected and sent; Complete Time: 11:14 03/17 11:00 Order name: O2 Per Protocol; Complete Time: 11:14 03/17 11:00 Order name: O2 Sat Monitoring; Complete Time: 11:14 03/17 13:15 Order name: Urine Dipstick-Ancillary (obtain specimen): cath; Complete Time: 13:29 gs EC:40 Rate is 72 beats/min. Rhythm is regular. MA interval is normal. QRS interval is normal. gs Q waves are Old. T waves are Flattened. Clinical impression: NSR w/ Non-specific ST/T Changes. Interpreted by me. Administered Medications: 11:10 Drug: NS 0.9% 500 ml Route: IV; Rate: bolus; Site: right antecubital; aa5 11:40 Follow up: IV Status: Completed infusion; IV Intake: 500ml aa5 Disposition: 03/17/19 14:21 Discharged to Home. Impression: Influenza due to other identified influenza virus. - Condition is Stable. - Discharge Instructions: Influenza, Adult, [id number]. - Medication Reconciliation Form, Thank You Letter, Antibiotic Education, Prescription Opioid Use form. - Follow up: Private Physician; When: 2 - 3 days; Reason: Re-evaluation by your physician. Signatures: Dispatcher [employer] EDBeti Moreno RN RN aa Ana Merritt RN RN Allan Jarvis MD MD Corrections: (The following items were deleted from the chart) 15:01 14:21 03/17/2019 14:21 Discharged to Home. Impression: Influenza due to other aa5 identified influenza virus. Condition is Stable. Forms are Medication Reconciliation Form, Thank You Letter, Antibiotic Education, Prescription Opioid Use. Follow up: Private Physician; When: 2 - 3 days; Reason: Re-evaluation by your physician.
--- NOTE | 2019-03-17 14:22 | ER ---
Nurse's Notes [facility] Name: Luz Maria Higuera Age: 68 yrs Sex: Female : 1950 Arrival Date: 03/17/2019 Time: 10:28 Bed 5 Private MD: Bismark Mo V Diagnosis: Influenza due to other identified influenza virus Presentation: 03/17 10:41 Presenting complaint: Patient states: fatigue and decreased appetite x 1 week. ss Transition of care: patient was not received from another setting of care. Onset of symptoms was March 10, 2019. Risk Assessment: Do you want to hurt yourself or someone else? Patient reports no desire to harm self or others. Initial Sepsis Screen: Does the patient meet any 2 criteria? No. Patient's initial sepsis screen is negative. Initial Sepsis Screen: Does the patient have a suspected source of infection? No. Patient's initial sepsis screen is negative. Care prior to arrival: None. 10:41 Method Of Arrival: Wheelchair ss 10:41 Acuity: TOYIN 3 ss Historical: - Allergies: 10:44 "unknown blood pressure medication."; ss - PMHx: 10:44 Hypertension; ss - PSHx: 10:44 Knee surgery; ss - Immunization history:: Adult Immunizations up to date. - Social history:: Smoking status: Patient/guardian denies using tobacco. - Ebola Screening: : Patient denies exposure to infectious person Patient denies travel to an Ebola-affected area in the 21 days before illness onset. Screenin:45 Abuse screen: Denies threats or abuse. Nutritional screening: No deficits noted. aa5 Tuberculosis screening: No symptoms or risk factors identified. Fall Risk None identified. Assessment: 10:45 General: Appears comfortable, Behavior is calm, cooperative. Pain: Denies pain. Neuro: aa5 Level of Consciousness is awake, alert, obeys commands, Oriented to person, place, time, situation, Real Estate Loan Officer are equal bilaterally Moves all extremities. Gait is steady, Speech is normal, Facial symmetry appears normal, Reports generalized weakness x 1 week ago . Cardiovascular: Heart tones S1 S2 present Rhythm is sinus rhythm. Respiratory: Airway is patent Respiratory effort is even, unlabored, Respiratory pattern is regular, symmetrical, Breath sounds are clear bilaterally. GI: Abdomen is round non-distended, Bowel sounds present X 4 quads. Abd is soft and non tender X 4 quads. Reports decreased appetite x 1 week and intermittent nausea Patient currently denies abdominal pain, diarrhea, vomiting. : Denies burning with urination. EENT: No signs and/or symptoms were reported regarding the EENT system. Derm: Skin is pink, warm \\T\\ dry. Musculoskeletal: Range of motion: intact in all extremities. 11:40 Reassessment: Patient is alert, oriented x 3, equal unlabored respirations, skin aa5 warm/dry/pink. Patient denies pain at this time. Patient states feeling better. 11:40 Reassessment: Pt ambulatory to restroom with steady gait, pt placed back in bed. . aa5 12:25 Reassessment: Patient appears in no apparent distress at this time. Patient and/or hb family updated on plan of care and expected duration. Pain level reassessed. Patient is alert, oriented x 3, equal unlabored respirations, skin warm/dry/pink. 13:57 Reassessment: Patient is alert, oriented x 3, equal unlabored respirations, skin aa5 warm/dry/pink. Patient denies pain at this time. 13:57 Cardiovascular: Rhythm is sinus rhythm. aa5 14:50 Reassessment: Patient is alert, oriented x 3, equal unlabored respirations, skin aa5 warm/dry/pink. Vital Signs: 10:44 BP 122 / 79; Pulse 84; Resp 16; Temp 98.1(TE); Pulse Ox 98% on R/A; Weight 81.65 kg; ss Pain 0/10; 12:15 BP 122 / 79; Pulse 61; Resp 18; Pulse Ox 100% on R/A; hb 13:30 BP 130 / 85; Pulse 62; Resp 18 S; Pulse Ox 99% on R/A; Pain 0/10; aa5 14:30 BP 134 / 88; Pulse 64; Resp 16 S; Temp 98.3(TE); Pulse Ox 99% on R/A; Pain 0/10; aa5 ED Course: 10:28 Patient arrived in ED. as 10:29 Bismark Mo MD is Private Physician. as 10:40 Beti Carmona, MALVIN is Primary Nurse. aa5 10:41 Allan Jarvis MD is Attending Physician. gs 10:43 Triage completed. ss 10:44 Arm band placed on right wrist. ss 10:45 Patient has correct armband on for positive identification. Placed in gown. Bed in low aa5 position. Call light in reach. Side rails up X2. phototypesetting equipment monitor on. Pulse ox on. NIBP on. 11:10 Initial lab(s) drawn, by me, sent to lab. Inserted saline lock: 20 gauge in right aa5 antecubital area, using aseptic technique. Blood collected. 11:23 XRAY Chest (1 view) In Process Unspecified. EDMS 12:25 Flu Sent. hb 12:25 Dougherty Screen Profile Sent. hb 13:55 Straight cath inserted, using sterile technique, 16 Fr. Specimen obtained. Returned aa5 clear yellow urine. Patient tolerated well. 14:50 No provider procedures requiring assistance completed. IV discontinued, intact, aa5 bleeding controlled, No redness/swelling at site. Pressure dressing applied. Administered Medications: 11:10 Drug: NS 0.9% 500 ml Route: IV; Rate: bolus; Site: right antecubital; aa5 11:40 Follow up: IV Status: Completed infusion; IV Intake: 500ml aa5 Intake: 11:40 IV: 500ml; Total: 500ml. aa5 Outcome: 14:21 Discharge ordered by MD. 14:55 Discharged to home ambulatory, with family. aa5 14:55 Condition: stable 14:55 Discharge instructions given to patient, Instructed on discharge instructions, follow up and referral plans. Demonstrated understanding of instructions, follow-up care. 15:01 Patient left the ED. aa5 Signatures: Dispatcher [employer] Soo Denise Audri RN RN aa5 Ana Merritt RN RN ss Baxter, Heather, RN RN Allan Jarvis MD MD Corrections: (The following items were deleted from the chart) 12:18 10:45 : No signs and/or symptoms were reported regarding the genitourinary system. aa5aa5 12:26 12:25 BP 122 / 79; Pulse 61bpm; Resp 18bpm; Pulse Ox 100% RA; hb hb
[2019-03-17 15:26] VITALS: BP 122/79; TEMP 98.1
[2019-03-17 15:27] VITALS: O2SAT 100
--- NOTE | 2019-03-18 17:22 | EKG ---
Test Date: 2019-03-17 Test Time: 11:13:22 Vice President Planning: MEASUREMENT RESULTS: Intervals: Rate: 72 GA: 152 QRSD: 80 QT: 374 QTc: 409 [place]: P: 16 GA: 152 QRS: 26 T: 21 INTERPRETIVE STATEMENTS: Normal sinus rhythm Low voltage QRS Abnormal ECG Compared to ECG 11/20/2018 16:36:11 Sinus bradycardia no longer present Electronically Signed On 03-18-19 17:22:03 CDT by Ramesh Coleman
== END 2019-03-17 15:01 | disposition home or self-care (01) ==
LOC: ER 10:26
DX: J10.1 Influenza due to other identified influenza virus with other respiratory manifestations (principal); I10 Essential (primary) hypertension
CPT/HCPCS: 93005; 85025; 80048; 36415; 83735; 86308; 85610; 80076; 84484; 83690; 83880; 87804 ×2; 71045; 51702; 99284; J7040; 81003; 81015

== ENCOUNTER 2019-04-22 04:20 | Emergency (ER) | payer OTHER ==
[2019-04-22] MEDS ORDERED: MECLIZINE HCL 12.5 MG TAB ONE (05:24)
[2019-04-22] MEDS ORDERED: NA CHLORIDE 0.9% 1,000 ML ONE (05:25)
[2019-04-22 05:34] LABS: Absolute Lymphocytes (CBC) 1.6 K/uL (0.7-4.9); Basophils % 0.5 % (0-1.3); Hematocrit 42.9 % (36.0-45.0); Lymphocytes % 21.1 % (15.3-44.8); MPV 7.7 fL (7.6-11.3); Protime INR 0.99; RBC Red Blood Cell Count 4.82 M/uL (3.86-4.86)
[2019-04-22 05:47] LABS: ALT/SGPT 21 U/L (12-78); AST/SGOT 14 U/L (15-37); Albumin 3.3 g/dL (3.4-5.0); Alkaline Phosphatase 112 U/L (45-117); BUN Blood Urea Nitrogen 17 mg/dL (7-18); Bicarbonate 30 mmol/L (21-32); Bilirubin Direct 0.1 mg/dL (0-0.2); Bilirubin Total 0.5 mg/dL (0.2-1.0); Glucose Level 110 mg/dL (74-106); Lipase 90 U/L (73-393); Magnesium 2.2 mg/dL (1.8-2.4); NT PRO-BNP 147 pg/mL (<125); Potassium 3.9 mmol/L (3.5-5.1); Protein, Total 7.2 g/dL (6.4-8.2); Sodium Level 141 mmol/L (136-145); Troponin (Emerg Dept Use Only) < 0.02 ng/mL (0.0-0.045)
--- NOTE | 2019-04-22 06:11 | EDPHYS ---
Physician Documentation [facility] Name: Luz Maria Higuera Age: 68 yrs Sex: Female : 1950 Arrival Date: 04/22/2019 Time: 04:21 Bed 15 Private MD: Bismark Mo V; Vang, Na ED Physician Gilberto Alvarez HPI: 04/22 05:01 This 68 yrs old Female presents to ER via Ambulatory with complaints of andrei Decreased Appetite, Vomiting, Near Syncope, Difficulty sleeping. 05:01 The patient presents to the emergency department with nausea. Onset: The andrei symptoms/episode began/occurred this morning, today. Possible causes: unknown. The symptoms are aggravated by. Associated signs and symptoms: Pertinent positives: anorexia. Severity of symptoms: At their worst the symptoms were mild in the emergency department the symptoms are unchanged. The patient has not experienced similar symptoms in the past. Historical: - Allergies: 04:36 No Known Drug Allergies; aa1 - Home Meds: 04:36 duloxetine 20 mg oral cpDR 1 cap daily [Active]; omeprazole 40 mg Oral cpDR 1 cap once aa1 daily [Active]; losartan 50 mg oral tab 1 tab once daily [Active]; aripiprazole 5 mg oral tab 1 tab once daily [Active]; - PMHx: 04:36 Hypertension; Anxiety; Depression; aa1 - PSHx: 04:36 Knee surgery; aa1 - Immunization history:: Flu vaccine is up to date. - Social history:: Smoking status: Patient/guardian denies using tobacco. - Ebola Screening: : No symptoms or risks identified at this time. - Family history:: not pertinent. ROS: 05:01 Constitutional: Negative for fever, chills, and weight loss, Eyes: Negative for injury, andrei pain, redness, and discharge, ENT: Negative for injury, pain, and discharge, Neck: Negative for injury, pain, and swelling, Cardiovascular: Negative for chest pain, palpitations, and edema, Respiratory: Negative for shortness of breath, cough, wheezing, and pleuritic chest pain, Abdomen/GI: Negative for abdominal pain, nausea, vomiting, diarrhea, and constipation, Back: Negative for injury and pain, : Negative for injury, bleeding, discharge, and swelling, MS/Extremity: Negative for injury and deformity, Skin: Negative for injury, rash, and discoloration, Psych: Negative for depression, anxiety, suicide ideation, homicidal ideation, and hallucinations, Allergy/Immunology: Negative for hives, rash, and allergies, Endocrine: Negative for neck swelling, polydipsia, polyuria, polyphagia, and marked weight changes, Hematologic/Lymphatic: Negative for swollen nodes, abnormal bleeding, and unusual bruising. 05:01 Neuro: Positive for dizziness, weakness. Exam: 05:01 Constitutional: This is a well developed, well nourished patient who is awake, alert, andrei and in no acute distress. Head/Face: Normocephalic, atraumatic. Eyes: Pupils equal round and reactive to light, extra-ocular motions intact. Lids and lashes normal. Conjunctiva and sclera are non-icteric and not injected. Cornea within normal limits. Periorbital areas with no swelling, redness, or edema. ENT: Nares patent. No nasal discharge, no septal abnormalities noted. Tympanic membranes are normal and external auditory canals are clear. Oropharynx with no redness, swelling, or masses, exudates, or evidence of obstruction, uvula midline. Mucous membranes moist. Neck: Trachea midline, no thyromegaly or masses palpated, and no cervical lymphadenopathy. Supple, full range of motion without nuchal rigidity, or vertebral point tenderness. No Meningismus. Chest/axilla: Normal chest wall appearance and motion. Nontender with no deformity. No lesions are appreciated. Cardiovascular: Regular rate and rhythm with a normal S1 and S2. No gallops, murmurs, or rubs. Normal PMI, no JVD. No pulse deficits. Respiratory: Lungs have equal breath sounds bilaterally, clear to auscultation and percussion. No rales, rhonchi or wheezes noted. No increased work of breathing, no retractions or nasal flaring. Abdomen/GI: Soft, non-tender, with normal bowel sounds. No distension or tympany. No guarding or rebound. No evidence of tenderness throughout. Back: No spinal tenderness. No costovertebral tenderness. Full range of motion. Female : Normal external genitalia. Skin: Warm, dry with normal turgor. Normal color with no rashes, no lesions, and no evidence of cellulitis. MS/ Extremity: Pulses equal, no cyanosis. Neurovascular intact. Full, normal range of motion. Neuro: Awake and alert, GCS 15, oriented to person, place, time, and situation. Cranial nerves II-XII grossly intact. Motor strength 5/5 in all extremities. Sensory grossly intact. Cerebellar exam normal. Normal gait. Psych: Awake, alert, with orientation to person, place and time. Behavior, mood, and affect are within normal limits. Vital Signs: 04:36 BP 152 / 95; Pulse 69; Resp 18; Temp 98.1; Pulse Ox 99% on R/A; Weight 77.11 kg; Height aa1 5 ft. 5 in. (165.10 cm); Pain 0/10; 05:39 BP 177 / 86; Pulse 61; Resp 18 S; Pulse Ox 100% on R/A; Pain 0/10; jd3 06:28 BP 165 / 78 Supine; Pulse 60; Resp 16 S; Pulse Ox 100% on R/A; Pain 0/10; jd3 06:28 BP 174 / 90 Sitting; Pulse 66; jd3 06:28 BP 177 / 85 Standing; Pulse 65; jd3 04:36 Body Mass Index 28.29 (77.11 kg, 165.10 cm) aa1 MDM: 04:38 Patient medically screened. [facility] 05:04 Data reviewed: vital signs, nurses notes, lab test result(s), EKG, radiologic studies. [facility] 04/22 05:01 Order name: Basic Metabolic Panel [facility] 04/22 05:01 Order name: CBC with Diff; Complete Time: 06:07 [facility] 04/22 05:01 Order name: LFT's; Complete Time: 06:07 [facility] 04/22 05:01 Order name: Magnesium; Complete Time: 06:07 [facility] 04/22 05:01 Order name: NT PRO-BNP; Complete Time: 06:07 [facility] 04/22 05:01 Order name: PT-INR; Complete Time: 06:07 [facility] 04/22 05:01 Order name: Troponin (emerg Dept Use Only); Complete Time: 06:07 [facility] 04/22 05:01 Order name: XRAY Chest (1 view) [facility] 04/22 05:01 Order name: Lipase; Complete Time: 06:07 [facility] 04/22 05:01 Order name: CT Head Brain wo Cont 04/22 05:01 Order name: Urine Culture [facility] 04/22 05:01 Order name: Basic Metabolic Panel; Complete Time: 06:07 EDMS 04/22 06:00 Order name: Urine Dipstick--Ancillary (enter results) me 04/22 05:01 Order name: EKG; Complete Time: 05:02 [facility] 04/22 05:01 Order name: Cardiac monitoring; Complete Time: 05:07 [facility] 04/22 05:01 Order name: EKG - Nurse/Tech; Complete Time: 05:21 [facility] 04/22 05:01 Order name: IV Saline Lock; Complete Time: 05:21 [facility] 04/22 05:01 Order name: Labs collected and sent; Complete Time: 05:22 [facility] 04/22 05:01 Order name: O2 Per Protocol; Complete Time: 05:07 [facility] 04/22 05:01 Order name: O2 Sat Monitoring; Complete Time: 05:07 [facility] 04/22 05:01 Order name: Urine Dipstick-Ancillary (obtain specimen); Complete Time: 06:01 [facility] 04/22 05:24 Order name: Orthostatics; Complete Time: 06:27 [facility] Administered Medications: 05:38 Drug: Meclizine 25 mg Route: PO; jd3 06:38 Follow up: Response: No adverse reaction jd3 05:38 Drug: NS 0.9% 500 ml Route: IV; Rate: bolus; Site: right antecubital; jd3 06:41 Follow up: Response: No adverse reaction; IV Status: Completed infusion; IV Intake: jd3 500ml 05:38 Drug: NS 0.9% 1000 ml Route: IV; Rate: 125 ml/hr; Site: right antecubital; jd3 06:41 Follow up: Response: No adverse reaction; IV Status: Order to discontinue infusion jd3 06:14 CANCELLED (Duplicate Order): Zofran 4 mg IVP once; over 2 minutes [facility] 06:27 Drug: Rocephin - (cefTRIAXone) 1 grams Route: IVPB; Infused Over: 30 mins; Site: right d3 antecubital; 06:42 Follow up: Response: No adverse reaction; IV Status: Completed infusion jd3 06:27 Drug: Aspirin 81 mg Route: PO; jd3 06:42 Follow up: Response: Medication administered at discharge. jd3 Disposition: 04/22/19 06:10 Discharged to Home. Impression: Dizziness and giddiness, Insomnia, Urinary tract infection, site not specified. - Condition is Stable. - Discharge Instructions: Dizziness, Dysuria, Insomnia, Near-Syncope, Vertigo, Near-Syncope, [id number], Vertigo, Rydi-bg-Bbib, Aspirin and Your Heart, Dizziness, Mlyh-zc-Mohn. - Prescriptions for trazodone 50 mg Oral tablet - take 1 tablet by ORAL route Every night; 20 tablet. Meclizine 25 mg Oral Tablet - take 1 tablet by ORAL route every 8 hours As needed; 30 tablet. Macrobid 100 mg Oral Capsule - take 1 capsule by ORAL route every 12 hours for 7 days; 14 capsule. - Medication Reconciliation Form, Thank You Letter, Antibiotic Education, Prescription Opioid Use form. - Follow up: Janice Thomas; When: 2 - 3 days; Reason: Recheck today's complaints, Continuance of care, Re-evaluation by your physician. - Problem is new. - Symptoms have improved. Signatures: Dispatcher [employer] EDSandee Hernandez RN RN aa1 Gilberto Alvarez MD MD cha Davies, Jonathon, RN RN jd3 Corrections: (The following items were deleted from the chart) 06:14 06:09 Zofran 4 mg IVP once; over 2 minutes ordered. andrei forbes 06:42 06:10 04/22/2019 06:10 Discharged to Home. Impression: Dizziness and giddiness; jd3 Insomnia; Urinary tract infection, site not specified. Condition is Stable. Discharge Instructions: Dizziness, Insomnia, Near-Syncope, Vertigo, Near-Syncope, Xulk-hj-Iuwh, Vertigo, Ncsm-ci-Nfaj, Aspirin and Your Heart, Dizziness, Buzf-ku-Ejnv. Prescriptions for trazodone 50 mg Oral tablet - take 1 tablet by ORAL route Every night; 20 tablet, Meclizine 25 mg Oral Tablet - take 1 tablet by ORAL route every 8 hours As needed; 30 tablet. and Forms are Medication Reconciliation Form, Thank You Letter, Antibiotic Education, Prescription Opioid Use. Follow up: Janice Thomas; When: 2 - 3 days; Reason: Recheck today's complaints, Continuance of care, Re-evaluation by your physician. Problem is new. Symptoms have improved. andrei
--- NOTE | 2019-04-22 06:11 | ER ---
Nurse's Notes [facility] Name: Luz Maria Higuera Age: 68 yrs Sex: Female : 1950 Arrival Date: 04/22/2019 Time: 04:21 Bed 15 Private MD: Bismark Mo V; Vang, Na Diagnosis: Dizziness and giddiness;Insomnia;Urinary tract infection, site not specified Presentation: 04/22 04:32 Presenting complaint: Patient states: decreased appetite and trouble sleeping x 3 weeks aa1 and this morning she got up and was dizzy and almost passed out. Transition of care: patient was not received from another setting of care. Onset of symptoms was March 2019. Risk Assessment: Do you want to hurt yourself or someone else? Patient reports no desire to harm self or others. Initial Sepsis Screen: Does the patient meet any 2 criteria? No. Patient's initial sepsis screen is negative. Does the patient have a suspected source of infection? No. Patient's initial sepsis screen is negative. Care prior to arrival: None. 04:32 Method Of Arrival: Ambulatory aa1 04:32 Acuity: TOYIN 3 aa1 Triage Assessment: 04:36 General: Appears in no apparent distress. comfortable, Behavior is calm, cooperative, aa1 appropriate for age. Pain: Denies pain. Historical: - Allergies: 04:36 No Known Drug Allergies; aa1 - Home Meds: 04:36 duloxetine 20 mg oral cpDR 1 cap daily [Active]; omeprazole 40 mg Oral cpDR 1 cap once aa1 daily [Active]; losartan 50 mg oral tab 1 tab once daily [Active]; aripiprazole 5 mg oral tab 1 tab once daily [Active]; - PMHx: 04:36 Hypertension; Anxiety; Depression; aa1 - PSHx: 04:36 Knee surgery; aa1 - Immunization history:: Flu vaccine is up to date. - Social history:: Smoking status: Patient/guardian denies using tobacco. - Ebola Screening: : No symptoms or risks identified at this time. - Family history:: not pertinent. Screenin:42 Abuse screen: Denies threats or abuse. Nutritional screening: No deficits noted. jd3 Tuberculosis screening: No symptoms or risk factors identified. Fall Risk Ambulatory Aid- None/Bed Rest/Nurse Assist (0 pts). Gait- Normal/Bed Rest/Wheelchair (0 pts) Mental Status- Oriented to own ability (0 pts). Total Goel Fall Scale indicates No Risk (0-24 pts). Assessment: 04:45 General: Appears in no apparent distress. comfortable, Behavior is calm, cooperative, jd3 appropriate for age, Reports fatigue for 0-12 hours. Pain: Denies pain. Neuro: Level of Consciousness is awake, alert, obeys commands, Oriented to person, place, time, situation, Reports dizziness. Cardiovascular: Capillary refill < 3 seconds Thorax Rhythm is regular. Respiratory: Airway is patent Respiratory effort is even, unlabored, Respiratory pattern is regular, symmetrical, Denies cough, shortness of breath. GI: Abdomen is round non-distended, Reports decreased appetite Patient currently denies abdominal pain, diarrhea, nausea, vomiting. : No signs and/or symptoms were reported regarding the genitourinary system. EENT: No signs and/or symptoms were reported regarding the EENT system. Derm: Skin is intact, Skin is dry, Skin is normal, Skin temperature is warm. Musculoskeletal: Circulation, motion, and sensation intact. Range of motion: intact in all extremities. 05:39 Reassessment: Patient appears in no apparent distress at this time. No changes from jd3 previously documented assessment. Patient and/or family updated on plan of care and expected duration. Pain level reassessed. Patient is alert, oriented x 3, equal unlabored respirations, skin warm/dry/pink. 06:38 Reassessment: Patient appears in no apparent distress at this time. Patient and/or jd3 family updated on plan of care and expected duration. Pain level reassessed. Patient is alert, oriented x 3, equal unlabored respirations, skin warm/dry/pink. pt reports feeling less dizzy. reported understanding of discharge instructions. assisted pt to front of ER with family using wheelchair. Patient states feeling better. Vital Signs: 04:36 BP 152 / 95; Pulse 69; Resp 18; Temp 98.1; Pulse Ox 99% on R/A; Weight 77.11 kg; Height aa1 5 ft. 5 in. (165.10 cm); Pain 0/10; 05:39 BP 177 / 86; Pulse 61; Resp 18 S; Pulse Ox 100% on R/A; Pain 0/10; jd3 06:28 BP 165 / 78 Supine; Pulse 60; Resp 16 S; Pulse Ox 100% on R/A; Pain 0/10; jd3 06:28 BP 174 / 90 Sitting; Pulse 66; jd3 06:28 BP 177 / 85 Standing; Pulse 65; jd3 04:36 Body Mass Index 28.29 (77.11 kg, 165.10 cm) aa1 ED Course: 04:21 Patient arrived in ED. es 04:24 Bismark Mo MD is Private Physician. es 04:24 Janice Thomas MD is Private Physician. es 04:34 Triage completed. aa1 04:36 Arm band placed on right wrist. aa1 04:38 Gilberto Alvarez MD is Attending Physician. andrei 04:41 Rojelio Wynne RN is Primary Nurse. jd3 04:42 Patient has correct armband on for positive identification. Placed in gown. Bed in low jd3 position. Call light in reach. Side rails up X 1. Adult w/ patient. 05:14 XRAY Chest (1 view) In Process Unspecified. EDMS 05:19 EKG done, by ED staff, reviewed by Gilberto Alvarez MD. Inserted saline lock: 20 gauge in jd3 right antecubital area, using aseptic technique. Blood collected. 05:37 CT Head Brain wo Cont In Process Unspecified. EDMS 06:09 Janice Thomas MD is Referral Physician. andrei 06:29 No provider procedures requiring assistance completed. jd3 06:40 IV discontinued, intact, bleeding controlled, No redness/swelling at site. Pressure jd3 dressing applied. Administered Medications: 05:38 Drug: Meclizine 25 mg Route: PO; jd3 06:38 Follow up: Response: No adverse reaction jd3 05:38 Drug: NS 0.9% 500 ml Route: IV; Rate: bolus; Site: right antecubital; jd3 06:41 Follow up: Response: No adverse reaction; IV Status: Completed infusion; IV Intake: jd3 500ml 05:38 Drug: NS 0.9% 1000 ml Route: IV; Rate: 125 ml/hr; Site: right antecubital; jd3 06:41 Follow up: Response: No adverse reaction; IV Status: Order to discontinue infusion jd3 06:14 CANCELLED (Duplicate Order): Zofran 4 mg IVP once; over 2 minutes andrei 06:27 Drug: Rocephin - (cefTRIAXone) 1 grams Route: IVPB; Infused Over: 30 mins; Site: right j antecubital; :42 Follow up: Response: No adverse reaction; IV Status: Completed infusion [facility] :27 Drug: Aspirin 81 mg Route: PO; jd3 06:42 Follow up: Response: Medication administered at discharge. jd3 Intake: 06:41 IV: 500ml; Total: 500ml. jd3 Outcome: 06:10 Discharge ordered by . [facility] [place] 06:39 Discharged to home via wheelchair, with family. jd3 06:39 Condition: stable 06:39 Discharge instructions given to patient, family, Instructed on discharge instructions, follow up and referral plans. medication usage, Demonstrated understanding of instructions, follow-up care, medications, Prescriptions given X 3. 06:42 Patient left the ED. jd3 Signatures: Dispatcher [employer] Sandee King RN RN aa1 Gilberto Alvarez MD MD cha Salyer, Edna es Davies, Jonathon, RN RN jd3 Corrections: (The following items were deleted from the chart) 06:42 06:41 Response: No adverse reaction; Medication administered at discharge. jd3 jd3
[2019-04-22] MEDS ORDERED: CEFTRIAXONE/SWI 1gm 1 GM/10 ML SYR ONE (06:16)
[2019-04-22] MEDS ORDERED: ASPIRIN 81 MG CHEWABLE TABLET ONE (06:18)
[2019-04-22 07:12] LABS: Urine Blood TRACE (NEG); Urine Glucose NEGATIVE (NEG); Urine Protein NEGATIVE (NEG); Urine Specific Gravity 1.015 (1.005-1.030); Urine pH 5.5 (5.0-7.0)
[2019-04-22 07:23] VITALS: TEMP 98.1
[2019-04-22 07:25] VITALS: O2SAT 100
[2019-04-22 07:27] VITALS: BP 177/85
--- NOTE | 2019-04-22 08:23 | RAD REPORT ---
EXAM DESCRIPTION: RAD - Chest Single View - 04/22/2019 5:13 am CLINICAL HISTORY: Cough, shortness of breath COMPARISON: March 17 TECHNIQUE: AP portable chest image was obtained [id number] hours . FINDINGS: Lung volumes are low. No peripheral mass or consolidation. Interstitial pattern matches co mparison. Heart and vasculature are normal. No measurable pleural effusion and no pneumothorax. No ac [place] bony abnormality seen. No acute aortic findings suspected. IMPRESSION: No acute cardiopulmonary process.
--- NOTE | 2019-04-23 09:37 | EKG ---
Test Date: 2019-04-22 Test Time: 05:10:01 Environmental Studies Program Director: MARLA MEASUREMENT RESULTS: Intervals: Rate: 61 [place]: 172 QRSD: 78 QT: 410 QTc: 412 [place]: P: 10 [place]: 172 QRS: 14 T: 20 INTERPRETIVE STATEMENTS: Normal sinus rhythm Low voltage QRS Cannot rule out Anterior infarct, age undetermined Abnormal ECG Compared to ECG 03/17/2019 11:13:22 Myocardial infarct finding now present Electronically Signed On 04-23-19 09:36:43 ACCESS REPRESENTATIVE by Ramesh Coleman
--- NOTE | 2019-04-23 10:53 | RAD REPORT ---
EXAM DESCRIPTION: CT - Head Brain Wo Cont - 04/22/2019 5:54 am CLINICAL HISTORY: The patient is 68 years old and is Female; DIZZINESS TECHNIQUE: Axial computed tomography images of the head/brain without intravenous contrast. Sagitt al and coronal reformatted images were created and reviewed. This CT exam was performed using one o r more of the following dose reduction techniques: automated exposure control, adjustment of the mA and/or kV according to patient size, and/or use of iterative reconstruction technique. COMPARISON: CT of the head November 20, 2018. FINDINGS: BRAIN: Calcification within the left frontal lobe is present, similar to prior. The gr ay-white differentiation is maintained. No intracranial hemorrhage, mass effect, or midline shift is seen. There is no cerebral edema. Minimal bilateral basal ganglia calcifications are present. VENTRICLES: Unremarkable. No ventriculomegaly. BONES/JOINTS: No acute fracture. SOFT TISSUES: Unremarkable. SINUSES: Unremarkable as visualized. No acute sinusitis. MASTOID AIR CELLS: Unremarkable as visualized. No mastoid effusion. ORBITS: Unremarkable as visualized. IMPRESSION: No acute intracranial findings. Electronically signed by: Iram Vieira MD 04/22/2019 5:50 AM SENIOR JAVA WE[employer] APPLICATION DEVELOPER Due to temporary technical issues with the PACS/Fluency reporting system, reports are being signed by the in house radiologist as a courtesy to ensure prompt reporting. The interpreting radiologist is f ully responsible for the content of the report.
== END 2019-04-22 06:42 | disposition home or self-care (01) ==
LOC: ER 04:20
DX: G47.00 Insomnia, unspecified (principal); N39.0 Urinary tract infection, site not specified; I10 Essential (primary) hypertension; F41.9 Anxiety disorder, unspecified; F32.9 Major depressive disorder, single episode, unspecified
CPT/HCPCS: 96361; 93005; 87088; 85025; 87086; 80048; 36415; 83735; 85610; 80076; 81003; 84484; 83690; 83880; 70450; 71045; 96374; 99284; J0696; J7030; J8597

== ENCOUNTER 2019-06-22 16:17 | Emergency (ER) | payer OTHER ==
--- OUTSIDE RECORDS SUMMARY | 2019-06-22 16:19 | XMS REPORT ---
:1950 Author Organization [employer] Care Team Providers Name Role Phone Thomas, Na Provider Role Unavailable Allergies, Adverse Reactions, Alerts Substance Reaction Event Type N.K.D.A. Info Not Available Non Drug Allergy Problems Problem Type Condition Code Onset Dates Condition Status Assessment Elevated blood pressure reading with I10 Active diagnosis of hypertension Assessment Depression with anxiety F41.8 Active Assessment Chronic fatigue R53.82 Active Assessment Trouble in sleeping G47.9 Active Assessment Osteoarthritis of multiple joints, M15.9 Active unspecified osteoarthritis type Assessment Gastroesophageal reflux disease, K21.9 Active esophagitis presence not specified Problem Trouble in sleeping G47.9 Active Problem Osteoarthritis of multiple joints, M15.9 Active unspecified osteoarthritis type Problem Chronic fatigue R53.82 Active Problem Depression with anxiety F41.8 Active Problem Gastroesophageal reflux disease, K21.9 Active esophagitis presence not specified Problem Elevated blood pressure reading with I10 Active diagnosis of hypertension Problem Memory problem R41.3 Active Medications Medication Code Code Instructions Start End Status Dosage System Date Date Aripiprazole [facility] 23011128371 2 MG Orally Active 1 tablet Once a day Gabapentin ND 12374818107 100 MG Orally Active 1 capsule three times a day Omeprazole ND 22255186398 40 MG Orally Active 1 capsule Once a day Losartan ND 57562159716 50 MG Orally Active as directed Potassium once a day Duloxetine HCl [facility] 24113667761 20 MG Orally Active 1 capsule Once a day at bedtime Results No Known Results Summary Purpose [employer]ClinicalWorks Submission
--- OUTSIDE RECORDS SUMMARY | 2019-06-22 16:20 | XMS REPORT ---
:1950 Author Organization [employer] Care Team Providers Name Role Phone Thomas, Na Provider Role Unavailable Allergies No Known Allergies Problems Problem Type Condition Code Onset Dates Condition Status Problem Trouble in sleeping G47.9 Active Problem Osteoarthritis of multiple joints, M15.9 Active unspecified osteoarthritis type Problem Chronic fatigue R53.82 Active Problem Depression with anxiety F41.8 Active Problem Gastroesophageal reflux disease, K21.9 Active esophagitis presence not specified Problem Elevated blood pressure reading with I10 Active diagnosis of hypertension Problem Memory problem R41.3 Active Medications Medication Code System Code Instructions Start Date End Date Status Dosage Fluconazole [facility] 62894268485 150 MG Orally Jun 13, Jun 14, Active 1 tablet 2019 2019 Results No Known Results Summary Purpose eClinicalWorks Submission
--- OUTSIDE RECORDS SUMMARY | 2019-06-22 16:20 | XMS REPORT ---
:1950 Author Organization [employer] Care Team Providers Name Role Phone Thomas, Na Provider Role Unavailable Allergies No Known Allergies Problems Problem Type Condition Code Onset Dates Condition Status Problem Depression with anxiety F41.8 Active Problem Elevated blood pressure reading with I10 Active diagnosis of hypertension Problem Memory problem R41.3 Active Problem Vaginal dryness, menopausal N95.1 Active Problem Memory loss or impairment R41.3 Active Problem Atrophic vaginitis N95.2 Active Problem Chronic fatigue R53.82 Active Problem Osteoarthritis of multiple joints, M15.9 Active unspecified osteoarthritis type Problem Severe major depression F32.2 Active Problem Trouble in sleeping G47.9 Active Assessment Chronic fatigue R53.82 Active Assessment Trouble in sleeping G47.9 Active Assessment Elevated blood pressure reading with I10 Active diagnosis of hypertension Assessment Depression with anxiety F41.8 Active Assessment Osteoarthritis of multiple joints, M15.9 Active unspecified osteoarthritis type Assessment Gastroesophageal reflux disease, K21.9 Active esophagitis presence not specified Problem Gastroesophageal reflux disease, K21.9 Active esophagitis presence not specified Medications Medication Code Code Instructions Start End Status Dosage System Date Date Duloxetine HCl [facility] 48975480058 20 MG Orally Inactive 1 capsule Once a day at bedtime BuPROPion HCl ND 67922318533 100 MG Orally Jun 05, Active 1 tablet ER (SR) Once a day 2019 in the morning Gabapentin ND 11148962081 100 MG Orally Inactive 1 capsule three times a day Aripiprazole ND 91589580167 2 MG Orally Active 1 tablet Once a day Losartan ND 95739962192 50 MG Orally Active as Potassium once a day directed Pantoprazole ND 74082781278 40 MG Orally Active 1 tablet Sodium Once a day Results No Known Results Summary Purpose eClinicalWorks Submission
[2019-06-22 17:28] LABS: Absolute Lymphocytes (CBC) 1.3 K/uL (0.7-4.9); Basophils % 0.6 % (0-1.3); Hematocrit 45.5 % (36.0-45.0); Lymphocytes % 19.6 % (15.3-44.8); RBC Red Blood Cell Count 5.04 M/uL (3.86-4.86)
[2019-06-22 17:39] LABS: Albumin 3.4 g/dL (3.4-5.0); Bilirubin Direct 0.2 mg/dL (0-0.2); Bilirubin Total 0.6 mg/dL (0.2-1.0); Protein, Total 7.4 g/dL (6.4-8.2)
--- NOTE | 2019-06-22 19:03 | RAD REPORT ---
EXAM DESCRIPTION: CT - Abdomen Pelvis W Contrast - 06/22/2019 6:07 pm CLINICAL HISTORY: constipation;Abd pain, loss of appetite COMPARISON: No comparisons TECHNIQUE: Biphasic, helical CT imaging of the abdomen and pelvis was performed following 100 ml non -ionic IV contrast. No oral contrast given. All CT scans are performed using dose optimization technique as appropriate and may include automated exposure control or mA/KV adjustment according to patient size. FINDINGS: No suspicious findings in the lung bases. Borderline to mild fatty infiltration of liver present. No acute liver, spleen or pancreatic finding. Gallbladder and biliary tree are also without suspicious finding. Gallstones can be occult on CT trudy ging. Symmetric renal function is seen with no hydronephrosis or suspicious renal mass. No pyelonephritis o r acute parenchymal process. No bladder abnormalities. No adrenal abnormality seen. No uterine wall t hickening or mass. Uterus and ovaries show no suspicious findings. Pelvic floor laxity is present. No dilated bowel loops or bowel wall thickening. No acute GI process seen. There is moderate stool di stending but not dilating the rectum. No free air, free fluid or inflammatory stranding. No mass or bulky lymphadenopathy. Fat only inguinal hernia noted on the left. Disc and bony degenerative changes are present. No acute bone finding. IMPRESSION: Contrast enhanced CT abdomen and pelvis showing no significant or suspicious finding. N onacute findings detailed in the body of the report.
--- NOTE | 2019-06-22 19:17 | ER ---
Nurse's Notes [facility] Name: Luz Maria Higuera Age: 68 yrs Sex: Female : 1950 Arrival Date: 06/22/2019 Time: 16:19 Bed 23 Private MD: Diagnosis: Constipation Presentation: 06/22 16:22 Presenting complaint: Pt's daughter states "the last 2 weeks she's been eating very aa5 little and the last week barely anything at all". Pt also reports epigastric pain and constipation. Pt's daughter states "she's been seeing things now and says that she is afraid, like yesterday she didn't want to take a bath because she was afraid of the water because she said it was dirty". Pt is A\\T\\O x 4 in triage. Transition of care: patient was not received from another setting of care. Onset of symptoms was May 2019. Initial Sepsis Screen: Does the patient meet any 2 criteria? No. Patient's initial sepsis screen is negative. Does the patient have a suspected source of infection? No. Patient's initial sepsis screen is negative. Care prior to arrival: None. 16:22 Acuity: TOYIN 3 aa5 16:22 Method Of Arrival: Ambulatory aa5 16:27 Risk Assessment: Do you want to hurt yourself or someone else? Unable to obtain Other: aa5 Pt not answering when asked about Suicidal ideations or depression. Triage Assessment: 16:41 General: Appears in no apparent distress. Behavior is flat. Pain: Denies pain. Neuro: ls4 Level of Consciousness is awake, alert, obeys commands, listless, Oriented to person, place, time, situation, Baseball Inspector are equal bilaterally Moves all extremities. Gait is steady, Speech is normal, Facial symmetry appears normal, Pupils are PERRLA, Cardiovascular: Denies chest pain, diaphoresis, fatigue, lightheadedness, nausea, palpitations, shortness of breath, syncope, vomiting. Respiratory: No deficits noted. GI: Reports constipation, epigastric pain. Musculoskeletal: No deficits noted. Historical: - Allergies: 16:26 No Known Allergies; aa5 - Home Meds: 16:26 aripiprazole 5 mg Oral tab 1 tab once daily [Active]; duloxetine 20 mg Oral cpDR 1 cap aa5 daily [Active]; losartan 50 mg Oral tab 1 tab once daily [Active]; omeprazole 40 mg Oral cpDR 1 cap once daily [Active]; - PMHx: 16:26 Anxiety; Depression; Hypertension; aa5 - PSHx: 16:26 Knee surgery; aa5 - Immunization history:: Adult Immunizations unknown. - Coronavirus screen:: The patient has NOT traveled to [place], [place], or [place] in the past 14 days. The patient has NOT had contact with known/suspected case of Coronavirus?. - Social history:: Smoking status: Patient denies any tobacco usage or history of. - Ebola Screening: : No symptoms or risks identified at this time. Screenin:43 Abuse screen: Denies threats or abuse. Denies injuries from another. Nutritional ls4 screening: No deficits noted. Tuberculosis screening: No symptoms or risk factors identified. Fall Risk None identified. Assessment: 16:44 General: SEE TRIAGE ASSESSMENT . ls4 17:52 Reassessment: Patient appears in no apparent distress at this time. Patient and/or ls4 family updated on plan of care and expected duration. Pain level reassessed. Patient is alert, oriented x 3, equal unlabored respirations, skin warm/dry/pink. PT HAD BOWEL MOVEMENT. 19:00 Reassessment: Patient appears in no apparent distress at this time. Patient and/or ls4 family updated on plan of care and expected duration. Pain level reassessed. Patient is alert, oriented x 3, equal unlabored respirations, skin warm/dry/pink. Vital Signs: 16:26 BP 151 / 104; Pulse 82; Resp 18 S; Temp 98.2(O); Pulse Ox 97% on R/A; Weight 78.93 kg aa5 (R); 18:30 BP 144 / 78; Pulse 80; Resp 14; Temp 98.1(O); Pulse Ox 97% on R/A; Pain 0/10; ls4 ED Course: 16:19 Patient arrived in ED. aa5 16:22 Arm band placed on. aa5 16:24 Shawn Davis MD is Attending Physician. kdr 16:25 Triage completed. aa5 16:34 Vivienne Wiseman RN is Primary Nurse. ls4 16:43 Patient has correct armband on for positive identification. Placed in gown. Bed in low ls4 position. Call light in reach. Side rails up X2. Adult w/ patient. repairer pump on. Pulse ox on. NIBP on. Warm blanket given. Verbal reassurance given. Diet: Patient is NPO. 16:43 No provider procedures requiring assistance completed. ls4 17:00 Served as a betting clerks during rectal exam. ls4 17:06 Initial lab(s) drawn, by me, sent to lab. Inserted saline lock: 20 gauge in right lt1 antecubital area, using aseptic technique. 18:08 CT Abd/Pelvis - IV Contrast Only In Process Unspecified. EDMS 19:40 IV discontinued. ls4 Administered Medications: No medications were administered Point of Care Testing: Guaiac: 17:00 Stool Guaiac: Negative; Stool Hemoccult Control: Pass; ls4 Outcome: 19:16 Discharge ordered by . kdr 19:39 Patient left the ED. ls4 19:40 Discharged to home with family. ls4 19:40 Condition: good 19:40 Discharge instructions given to patient, family, Instructed on discharge instructions, ls4 follow up and referral plans. Demonstrated understanding of instructions, follow-up care. Signatures: Dispatcher [employer] EDAL Shawn Davis MD MD kdr Beti Carmona RN RN aa5 Vivienne Wiseman, RN RN ls4 Altagracia Heredia lt1
--- NOTE | 2019-06-22 19:17 | EDPHYS ---
Physician Documentation [facility] Name: Luz Maria Higuera Age: 68 yrs Sex: Female : 1950 Arrival Date: 06/22/2019 Time: 16:19 Bed 23 Private MD: ED Physician Shawn Davis HPI: 06/22 17:10 This 68 yrs old Female presents to ER via Ambulatory with complaints of kdr Epigastric Pain, not eating. 17:10 The patient presents with Not eating and constipation . Onset: The symptoms/episode kdr began/occurred gradually, 2 week(s) ago. The symptoms do not radiate. Associated signs and symptoms: Pertinent positives: anorexia, constipation, Pertinent negatives: nausea and vomiting, chest pain, diarrhea, dysuria, fever, headache, hematuria, nausea, palpitations, shortness of breath, vaginal discharge, vomiting, vomiting blood. The symptoms are described as achy, dull, vague, waxing/waning. Modifying factors: The symptoms are alleviated by nothing, the symptoms are aggravated by alcohol. Severity of pain: At its worst the pain was mild moderate just prior to arrival. The patient has not experienced similar symptoms in the past. The patient has been recently seen by a physician: Dr. Prabhakar on last Tuesday. Historical: - Allergies: 16:26 No Known Allergies; aa5 - Home Meds: 16:26 aripiprazole 5 mg Oral tab 1 tab once daily [Active]; duloxetine 20 mg Oral cpDR 1 cap aa5 daily [Active]; losartan 50 mg Oral tab 1 tab once daily [Active]; omeprazole 40 mg Oral cpDR 1 cap once daily [Active]; - PMHx: 16:26 Anxiety; Depression; Hypertension; aa5 - PSHx: 16:26 Knee surgery; aa5 - Immunization history:: Adult Immunizations unknown. - Coronavirus screen:: The patient has NOT traveled to [place], [place], or [place] in the past 14 days. The patient has NOT had contact with known/suspected case of Coronavirus?. - Social history:: Smoking status: Patient denies any tobacco usage or history of. - Ebola Screening: : No symptoms or risks identified at this time. ROS: 17:10 Constitutional: Negative for fever, chills, and weight loss, Eyes: Negative for injury, kdr pain, redness, and discharge, ENT: Negative for injury, pain, and discharge, Neck: Negative for injury, pain, and swelling, Cardiovascular: Negative for chest pain, palpitations, and edema, Respiratory: Negative for shortness of breath, cough, wheezing, and pleuritic chest pain, Back: Negative for injury and pain, : Negative for injury, bleeding, discharge, and swelling, MS/Extremity: Negative for injury and deformity, Skin: Negative for injury, rash, and discoloration, Neuro: Negative for headache, weakness, numbness, tingling, and seizure activity. Psych: Negative for depression, anxiety, suicide ideation, homicidal ideation, and hallucinations, Allergy/Immunology: Negative for hives, rash, and allergies, Endocrine: Negative for neck swelling, polydipsia, polyuria, polyphagia, and marked weight changes, Hematologic/Lymphatic: Negative for swollen nodes, abnormal bleeding, and unusual bruising. 17:10 Abdomen/GI: Positive for constipation, anorexia, Negative for abdominal pain, nausea, vomiting, and diarrhea, abdominal cramps, abdominal distension, dysphagia, hematemesis, black/tarry stool, rectal pain, rectal bleeding, bowel incontinence. Exam: 17:10 Constitutional: This is a well developed, well nourished patient who is awake, alert, kdr and in no acute distress. Head/Face: Normocephalic, atraumatic. Eyes: Pupils equal round and reactive to light, extra-ocular motions intact. Lids and lashes normal. Conjunctiva and sclera are non-icteric and not injected. Cornea within normal limits. Periorbital areas with no swelling, redness, or edema. Neck: Trachea midline, no thyromegaly or masses palpated, and no cervical lymphadenopathy. Supple, full range of motion without nuchal rigidity, or vertebral point tenderness. No Meningismus. Chest/axilla: Normal chest wall appearance and motion. Nontender with no deformity. No lesions are appreciated. Cardiovascular: Regular rate and rhythm with a normal S1 and S2. No gallops, murmurs, or rubs. Normal PMI, no JVD. No pulse deficits. Respiratory: Lungs have equal breath sounds bilaterally, clear to auscultation and percussion. No rales, rhonchi or wheezes noted. No increased work of breathing, no retractions or nasal flaring. Back: No spinal tenderness. No costovertebral tenderness. Full range of motion. Skin: Warm, dry with normal turgor. Normal color with no rashes, no lesions, and no evidence of cellulitis. MS/ Extremity: Pulses equal, no cyanosis. Neurovascular intact. Full, normal range of motion. Neuro: Awake and alert, GCS 15, oriented to person, place, time, and situation. Cranial nerves II-XII grossly intact. Motor strength 5/5 in all extremities. Sensory grossly intact. Cerebellar exam normal. Normal gait. Psych: Awake, alert, with orientation to person, place and time. Behavior, mood, and affect are within normal limits. 17:10 Abdomen/GI: Inspection: abdomen appears normal, obese Bowel sounds: active, Palpation: soft, nontender, Rectal exam: Stool: brown, zuluaga, guaiac negative. Vital Signs: 16:26 BP 151 / 104; Pulse 82; Resp 18 S; Temp 98.2(O); Pulse Ox 97% on R/A; Weight 78.93 kg aa5 (R); 18:30 BP 144 / 78; Pulse 80; Resp 14; Temp 98.1(O); Pulse Ox 97% on R/A; Pain 0/10; ls4 MDM: 19:16 Patient medically screened. [facility] 06/23 16:29 Data reviewed: vital signs, nurses notes, lab test result(s), radiologic studies. kdr Counseling: I had a detailed discussion with the patient and/or guardian regarding: the historical points, exam findings, and any diagnostic results supporting the discharge/admit diagnosis, lab results, radiology results, the need for outpatient follow up. 06/22 16:34 Order name: Basic Metabolic Panel; Complete Time: 18:13 [facility] 06/22 16:34 Order name: CBC with Diff; Complete Time: 18:13 [facility] 06/22 16:34 Order name: Creatinine for Radiology; Complete Time: 18:13 [facility] 06/22 16:34 Order name: Hepatic Function; Complete Time: 18:13 [facility] 06/22 16:34 Order name: Lipase; Complete Time: 18:13 [facility] 06/22 17:10 Order name: CT Abd/Pelvis - IV Contrast Only; Complete Time: 19:07 [facility] 06/22 16:34 Order name: IV Saline Lock; Complete Time: 17:06 [facility] 06/22 16:34 Order name: Labs collected and sent; Complete Time: 17:06 kdr Administered Medications: No medications were administered Point of Care Testing: Guaiac: 06/22 17:00 Stool Guaiac: Negative; Stool Hemoccult Control: Pass; ls4 Disposition: 06/22/19 19:16 Discharged to Home. Impression: Constipation. - Condition is Stable. - Discharge Instructions: Constipation, Adult, [id number]. - Prescriptions for Miralax 17 gram/dose Oral - take 1 packet by ORAL route once daily dilute powder in 8 ounces of water or juice; 1 box. - Medication Reconciliation Form, Thank You Letter form. - Follow up: Private Physician; When: 2 - 3 days; Reason: If symptoms return, Further diagnostic work-up, Recheck today's complaints, Continuance of care, Re-evaluation by your physician. - Problem is an ongoing problem. Signatures: Dispatcher [employer] EDShawn Cash MD MD kdr Beti Carmona RN RN aa5 Vivienne Wiseman RN RN ls4 Corrections: (The following items were deleted from the chart) 19:39 19:16 06/22/2019 19:16 Discharged to Home. Impression: Constipation. Condition is ls4 Stable. Forms are Medication Reconciliation Form, Thank You Letter, Antibiotic Education, Prescription Opioid Use. Follow up: Private Physician; When: 2 - 3 days; Reason: If symptoms return, Further diagnostic work-up, Recheck today's complaints, Continuance of care, Re-evaluation by your physician. Problem is an ongoing problem. kdr
[2019-06-22 19:44] VITALS: BP 151/104; TEMP 98.2; O2SAT 97
== END 2019-06-22 19:39 | disposition home or self-care (01) ==
LOC: ER 16:17
DX: K59.00 Constipation, unspecified (principal); I10 Essential (primary) hypertension; F41.8 Other specified anxiety disorders
CPT/HCPCS: 85025; 80048; 36415; 80076; 83690; 74177; 99284; Q9967